=== PATIENT | female | born 1965 | race Caucasian/White ===

== ENCOUNTER → 2021-03-23 | Outpatient (CLI) | payer SELFPAY | LOC: LAB 12:16 | PROVIDERS: ATTEND Family Medicine | DX: E06.3 Autoimmune thyroiditis (principal) | CPT/HCPCS: 36415; 84443 ==

== ENCOUNTER → 2021-04-24 | Outpatient (CLI) | payer OTHER ==
[2021-04-24 07:57] LABS: BASO # 0.1 x10^3/uL (0.0-0.2); BASO % 1 % (0-3); EOS # 0.2 x10^3/uL (0.0-0.7); EOS % 3 % (0-3); HEMATOCRIT 42.6 % (36.0-47.0); HEMOGLOBIN 14.2 g/dL (12.0-15.5); LYMPH # 1.9 x10^3/uL (1.0-4.8); LYMPH % 31 % (24-48); MEAN CORPUSCULAR HEMOGLOBIN 29 pg (25-35); MEAN CORPUSCULAR HGB CONC 33 g/dL (31-37); MEAN CORPUSCULAR VOLUME 86 fL (79-100); MONO # 0.4 x10^3/uL (0.0-1.1); MONO % 6 % (0-9); NEUT # 3.6 x10^3/uL (1.8-7.7); NEUT % 59 % (31-73); PLATELET COUNT 265 x10^3/uL (140-400); RED BLOOD COUNT 4.94 x10^6/uL (3.50-5.40); RED CELL DISTRIBUTION WIDTH 14.8 % (11.5-14.5); WHITE BLOOD COUNT 6.2 x10^3/uL (4.0-11.0)
[2021-04-24 08:27] LABS: ALBUMIN 3.9 g/dL (3.4-5.0); ALBUMIN/GLOBULIN RATIO 1.1 (1.0-1.7); CALCIUM 8.6 mg/dL (8.5-10.1); CHOLESTEROL/HDL RATIO 3.6; CREATININE 0.7 mg/dL (0.6-1.0); GFR 86.2; POTASSIUM 4.2 mmol/L (3.5-5.1); TOTAL BILIRUBIN 0.3 mg/dL (0.2-1.0); TOTAL PROTEIN 7.6 g/dL (6.4-8.2)
[2021-04-24 08:47] LABS: FREE T4 1.36 ng/dL (0.76-1.46); THYROID STIM HORMONE (TSH) 1.733 uIU/mL (0.358-3.74)
[2021-04-24 23:07] LABS: CREAT RD UR 172.2 mg/dL (Not Estab.); MICROALB RD UR 9.3 ug/mL (Not Estab.)
[2021-04-25 01:08] LABS: HEMOGLOBIN A1C 5.9 % (4.8-5.6)
== END ==
LOC: LAB 06:56
PROVIDERS: ATTEND Family Medicine
DX: E03.9 Hypothyroidism, unspecified (principal); E55.9 Vitamin D deficiency, unspecified; E11.9 Type 2 diabetes mellitus without complications
CPT/HCPCS: 36415; 80053; 80061; 82043; 82306; 82570; 83036; 84439; 84443; 85025

== ENCOUNTER → 2021-04-27 | Outpatient (CLI) | payer OTHER ==
--- NOTE | 2021-04-27 11:01 | RAD ---
EXAM: Bilateral digital screening mammogram with tomosynthesis. HISTORY: 55-year-old female presents for screening mammography. TECHNIQUE: Full-field digital craniocaudal and mediolateral oblique 2D and 3D tomosynthesis images of both breasts are obtained for evaluation. Computer aided detection was applied. COMPARISON: 02/15/2020 BREAST PARENCHYMAL DENSITY: Level B - Scattered fibroglandular densities. FINDINGS: There are 2 adjacent sites of possible architectural distortion within the left breast at m id depth at the 9:00 and 10:00 positions centered approximately 9.5 cm and 7.5 cm from the nipple. Th amy are best seen on series 4, images 34 and 44 and series 10, image 51. There are multiple areas of nodularity and asymmetry within both breasts which are not significantly changed when allowing for differences in imaging technique. There are a few benign calcifications. IMPRESSION: BI-RADS Category 0: Incomplete. Additional imaging needed. RECOMMENDATION: Further evaluation with a 3D tomosynthesis true lateral view of the left breast and s pot compression craniocaudal and mediolateral oblique views of the left breast to assess suspected ar chitectural distortion at the 9:00 and 10:00 positions recommended. Sonographic imaging can also be p erformed if deemed indicated based on additional mammographic findings. If your mammogram demonstrates that you have dense breast tissue, which could hide abnormalities, and if you have other risk factors for breast cancer that have been identified, you might benefit from s upplemental screening tests that may be suggested by your ordering physician. Dense breast tissue, i n and of itself, is a relatively common condition. This information is not provided to cause undue c oncern, but rather to raise your awareness and to promote discussion with your physician regarding th e presence of other risk factors, in addition to dense breast tissue. A report of your mammography re sults will be sent to you and your physician. You should contact your physician if you have any ques tions or concerns regarding this report. Mammography is a sensitive method for finding small breast cancers, but it does not detect them all a nd is not a substitute for careful clinical examination. A negative mammogram does not negate a clin ically suspicious finding and should not result in delay in biopsying a clinically suspicious abnorma lity. PQRS compliance statement - Patient information was entered into a reminder system with a target due date for the next mammogram. "Our facility is accredited by the [employer] Mammography [employer]." Electronically signed by: Yoly Sandoval MD (04/27/2021 10:59 AM) [id number]
--- NOTE | 2021-04-27 15:36 | RAD ---
MRI of the lumbar spine without contrast 04/27/2021 CLINICAL HISTORY: Low back pain which radiates down the left leg. TECHNIQUE: Unenhanced T1-weighted and T2-weighted sagittal and axial and inversion recovery sagittal images of the lumbar spine were obtained. FINDINGS: Minimal S-shaped curvature of the thoracolumbar spine is seen. Degenerative signal changes are seen involving all of the disks of the lumbar spine. Degenerative signal changes are seen within the marrow surrounding these discs. The conus medullaris is normal morphology, position, and signal c haracteristics. On the axial images throughout the lumbar disc spaces, the changes of degenerative disc disease are s een. These consist of minimal to mild generalized disc bulges, degenerative changes involving the fac et joints and mild to moderate ligamentum flavum hypertrophy. These findings do not result in signifi cant central spinal canal or neural foraminal stenosis at any level. IMPRESSION: The changes of degenerative disc disease are seen throughout the lumbar spine. These find ings do not result in significant central spinal canal or neural foraminal stenosis. Electronically signed by: Kevin Santos MD (04/27/2021 3:34 PM) [id number]
== END ==
LOC: MAMMO 11:09
PROVIDERS: ATTEND Family Medicine
DX: Z12.31 Encounter for screening mammogram for malignant neoplasm of breast (principal); N64.89 Other specified disorders of breast; M51.36 Other intervertebral disc degeneration, lumbar region
CPT/HCPCS: 72148; 77063; 77067

== ENCOUNTER → 2021-05-02 | Outpatient (CLI) | payer OTHER ==
--- NOTE | 2021-05-02 18:00 | RAD ---
EXAMINATION: US BREAST LT, MG DIGITAL UNILAT DIAGNOSTIC MAMMO WITH LEROY History: Recalled from screening mammogram for architectural distortion in the left breast. Comparison: Screening mammogram 04/27/2021. Technique: Spot compression CC and MLO views and full field MLO view of the left breast were obtained . Ultrasound of the upper outer left breast was performed. Findings: Breast Tissue Density B : There are scattered areas of fibroglandular density. The areas of usability architect ural distortion at 9:00 and 10:00 9.5 and 7.5 cm posterior to the nipple are not conspicuous on spot compression or full-field ML views. ULTRASOUND: There is a hypoechoic antiparallel mass measuring 3 x 3 x 2 mm 11:00, 5 cm from the nippl e. This has slightly irregular margins with suggestion of spiculation on cine clip. There is a second hypoechoic mass measuring 3 x 3 x 2 mm at 9:00, 6 cm from the nipple. This has slightly angular alvaro ins and is wider than tall. These 2 masses may correspond with the mammographic abnormalities althoug h are closer to the nipple than seen on mammogram. There is a third more hypoechoic mass at 11:00 in the retroareolar region measuring 4 x 3 x 2 mm that was incidentally seen. This is slightly more circ umscribed in appearance, possibly clustered microcysts. No axillary lymphadenopathy. IMPRESSION: 3 hypoechoic masses in the left breast, 2 of which may possibly been not definitively correlate with the areas of distortion on mammogram. Recommend ultrasound-guided biopsy of the most suspicious mass at 11:00, 5 cm from the nipple. BI-RADS Category 4: Suspicious. There is also recommendations were discussed with the patient who is in agreement with the plan. Mammography is the most sensitive method for finding small breast cancers, but it does not detect the m all and is not a substitute for careful clinical examination. A negative mammogram does not negate a clinically suspicious finding and should not result in delay in biopsying a clinically suspicious a bnormality. "Our facility is accredited by the [employer] Mammography [employer]." The images were reviewed with computer aided detection. Electronically signed by: Janine Sanford MD (05/02/2021 5:58 PM) [id number]
== END ==
LOC: MAMMO 08:21
PROVIDERS: ATTEND Family Medicine
DX: N63.20 Unspecified lump in the left breast, unspecified quadrant (principal)
CPT/HCPCS: 76641; 77065; G0279; 77061

== ENCOUNTER → 2021-05-08 | Outpatient (CLI) | payer OTHER ==
[~2021-05-08] MED LIST: ACET500T68 PO; BUPIVACAINE MPF 0.25% 10 ML VIAL. ONE; BUSP5TAB PO; IOHEXOL 180 MG/ML 10 ML VIAL. ONE; LEVO100T5 PO; NAPR220C4 PO; OXYB5TAB10 PO; methylPREDNISolone ACETATE 80 MG/ML VIAL. ONE
--- NOTE | 2021-05-08 12:02 | PDOC4 ---
PROCEDURE Procedure Patient was consented for left-sided L4-5 and L5-S1 facet joint injections with fluoroscopic guidance. Risks were discussed including but not limited to: Bleeding, infection, possibility of epidural hematoma and subsequent neurological compromise, dural puncture, headaches, spinal cord and/or nerve damage, side effects of steroid medication, and poor results regarding pain control. Patient understands and wished to proceed. Under sterile prep and drape using C-arm fluoroscopic guidance AP and lateral and oblique views, left L4-5 and L5-S1 facet joint injections were performed, m edications injected: 80 mg Depo-Medrol +2 cc 0.25% bupivacaine +1 cc contrast. Condition at discharge stable patient tolerated the procedure well and no complications. MACO MOFFETT MD May 08, 2021 12:02
--- NOTE | 2021-05-08 12:02 | PDOC1 ---
INITIAL PAIN CONSULT DATE OF SERVICE: DOS: DATE: 05/08/21 TIME: 11:53 CHIEF COMPLAINT: Chief Complaint: Low back and left hip pain HISTORY OF PRESENT ILLNESS: 55-year-old female presents with history of pain low back and into the left hip and posterior gluteus occasionally worse for about 3 years. Patient reports is gradually increasing as not the result of any specific injury or accident that she is aware of is a constant and sharp at times now she has been treatment at outside facility about 2 years ago with radiofrequency ablation on the right side only which is about 95% effective and is still doing well the left side is her main complaint in the low back itself without radiation to the lower extremities but into the left posterior hip at times patient report is worse with walking standing changing positions sitting for prolonged periods wakes her from sleep least 2-3 times a night does not affect her bowel bladder control or ability to walk but is uncomfortable. Patient reports she has not had any recent therapies or chiropractic treatments as had these in the past and is doing some stretching daily also taking Tylenol and Aleve as well as diclofenac cream which does help mildly. Patient reports the pain is constant sharp at times in the low back throbbing aching especially with prolonged sitting and standing. Patient rates her pain is anywhere from a 7-10 with family home responsibilities 5-6 with recreation 5-8 with social activity 5-7 with occupation sexual behavior self-care and 5-8 with life support activities. Patient have MRI scan lumbar spine showing no significant central spinal canal stenosis but some changes of degenerative disc disease throughout the lumbar spine. Patient reports no loss of motor function no bowel or bladder incontinence. PAST MEDICAL HISTORY: PMH: Arthritis PREVIOUS SURGERIES: Past Surgical Hx: Cervical spinal fusion, total abdominal hysterectomy, right inguinal hernia repair CURRENT MEDICATIONS: Current Meds: Active Scripts Medications Dose Route/Sig Max Daily Dose Days Date Category Aleve (Naproxen Sodium) 220 Mg Capsule 220 Mg PO BID 05/08/21 Reported Acetaminophen 500 Mg Tablet 1 Tab PO PRN Q6HRS PRN 15 05/08/21 Reported Buspirone Hcl 5 Mg Tablet Unknown Dose PO DAILY 05/08/21 Reported Oxybutynin Chloride 5 Mg Tablet 1 Tab PO DAILY 05/08/21 Reported Levothyroxine Sodium 100 Mcg Tablet 1 Tab PO DAILY 05/08/21 Reported FAMILY HISTORY: Family Hx: No major medical problems or conditions that she is aware of. 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 PHYSICAL EXAM: VS: Blood pressure is 133/99 pulse 1 1 respirations 16 temperature 98.3 F height is 5 foot 9 inches weight is 231 pounds PE: PHYSICAL EXAMINATION: GENERAL: The patient is awake, alert, oriented, appropriate, very pleasant in demeanor. HEENT: Shows normocephalic, atraumatic. Extraocular movements are intact and symmetrical. Oral cavity: Mucous membranes moist and pink. Dentition intact. NECK: Shows anterior throat supple without palpable lymphadenopathy noted. Swallow reflex symmetrical. CHEST: Shows normal on inspection. Breath sounds are clear bilaterally, no rales rhonchi wheezes auscultated. HEART: Shows S1, S2 clear. No murmurs auscultated. ABDOMEN: Soft, nontender, nondistended, obese. No palpable organomegaly is noted. No rebound or guarding demonstrated. BACK: Shows spine grossly in the midline. Normal-appearing cervical lordotic curvature. There is increased thoracic kyphosis, some minor flattening of the lumbar lordotic curvature. Lumbar paraspinous muscles show symmetrical on insp ection, on palpation shows some moderate tenderness diffusely throughout the upper, middle and lower distribution of the paraspinous muscles bilaterally and also into the lower thoracic paraspinous musculature, firm, but without specific trigger points, without radiation of pain. The patient has good rotational motion of the lumbar spine, both laterally as well as extension and flexion with significant tenderness with rotation to the left greater than 10 degrees as well as with extension of the lumbar spine and axial loading of the low back significant pain on the left side with some radiation to the posterior gluteus. No tenderness over the spinous processes, sacrum or sacroiliac regions. EXTREMITIES: Lower extremities show deep tendon reflexes 2+ in the patellar and tendo calcaneus tendons. Motor exam is 5 on a scale of 5 with right dorsiflexion, extension, quadriceps and hamstring flexion and 5/5 on the left. Peripheral pulses are 1+ posterior tibial. No peripheral edema is noted bilaterally. Lower extremities are warm and dry to touch, equal in color and appearance. Straight leg raise noted to be negative bilaterally. SKIN: Shows warm and dry, good turgor. No edema. No sores, rashes or bruising throughout. IMPRESSION: Impression: 55-year-old female with approximate 3-year history of pain left-sided low back, consistent with facetogenic pain. History of radiofrequency ablation on the right with very good results. MRI scan as noted Arthritis Plan: Options discussed with the patient including conservative medical management continued physical therapies and interventional techniques. As patient did very well with previous interventional techniques would like to pursue these again. We discussed a lumbar facet joint injection today using descriptions as well as anatomical models to describe the procedure. Patient understands and would like to proceed. As she did very well with radiofrequency ablation on the right side we will preauthorize for radiofrequency on the left side and have diagnostic blocks done today on the left. Patient will return to the clinic in approximately 1 week we will plan on radiofrequency ablation on the left side L4-5 and L5-S1 levels at that time. Under sterile prep and drape using C-arm fluoroscopic guidance AP and lateral and oblique views, left L4-5 and L5-S1 facet joint injections were performed, medications injected: 80 mg Depo-Medrol +2 cc 0.25% bupivacaine +1 cc contrast. Condition at discharge stable patient tolerated the procedure well and no complications. MACO MOFFETT MD May 08, 2021 12:02
== END | disposition home or self-care (01) ==
LOC: PNCL 07:49
PROVIDERS: ATTEND Anesthesiology
DX: M54.5 Low back pain (principal); M51.36 Other intervertebral disc degeneration, lumbar region; M25.552 Pain in left hip; M19.90 Unspecified osteoarthritis, unspecified site; Z79.899 Other long term (current) drug therapy; Z98.890 Other specified postprocedural states
CPT/HCPCS: 64493; 64494; J1040; J3490; Q9965

== ENCOUNTER → 2021-05-10 | Outpatient (CLI) | payer OTHER ==
[~2021-05-10] MED LIST changes: -BUPIVACAINE MPF 0.25% 10 ML VIAL. ONE; -IOHEXOL 180 MG/ML 10 ML VIAL. ONE; -methylPREDNISolone ACETATE 80 MG/ML VIAL. ONE
--- NOTE | 2021-05-10 14:38 | RAD ---
EXAM: 1. ULTRASOUND-GUIDED CORE BIOPSY LEFT BREAST WITH CLIP PLACEMENT. 2. POSTCLIP DIAGNOSTIC LEFT MAMMOGRAPHY. HISTORY: Left breast mass. Ultrasound-guided biopsy is requested. FINDINGS: The procedure along with its risks and benefits were explained to the patient. She agreed to proceed. A timeout procedure was performed. The patient's prior mammography and sonography were reviewed. Sonographic images of the left 9:00 pos ition were also performed. These reveal an irregular hypoechoic solid mass at the 9:00 position 10 cm from the nipple measuring 7 x 6 x 6 mm. This is antiparallel and indeterminate. Prior imaging of the left axilla reveals no suspicious lymph nodes. The regions of suggested architectural distortion on prior mammography do not clearly persist and do not have clear ultrasound correlates. The lesion of prior sonographic concern appear to represent sma ll complicated cysts at the 11:00 position 5 cm from the nipple, and subareolar position. It was decided to biopsy the lesion at the 9:00 position 10 cm from the nipple. The overlying skin wa s sterilely prepped and infiltrated with 1% lidocaine for local anesthesia. Under ultrasound guidance , 3 core needle specimens of the target lesion were obtained using a 14-gauge biopsy device. These we re submitted in formalin. A postbiopsy clip was placed under ultrasound guidance. Pressure was held t o hemostasis. There were no immediate complications. Full-field digital mammographic views of the left breast were obtained in CC and MLO projections and interpreted on a dedicated workstation. They demonstrate the clip in correspondence with the target l esion. IMPRESSION: 1. Successful ultrasound-guided left breast biopsy with clip placement of a mass at the left 9:00 pos ition 10 cm from the nipple. 2. The postbiopsy clip corresponds with the target lesion. 3. The suggested sonographic lesion at the 11:00 position 5 cm from the nipple most likely reflects a benign complicated cyst. The suggested regions of architectural distortion on prior mammographic scr eening have no clear sonographic correlate. These findings were discussed with the patient. If the co mpleted biopsy is positive, breast MRI with and without contrast could screen for additional sites of disease and further exclude significant lesions at regions of sonographic and mammographic concern. If the biopsy is negative, six-month follow-up left diagnostic mammography and sonography is recommen ded. Electronically signed by: Lucius Ambrose MD (05/10/2021 2:35 PM) [id number]
--- NOTE | 2021-05-16 09:09 | PATHOLOGY ---
[facility] Accession Number: [id number] . 01 Material submitted: . breast - LEFT BREAST TISSUE 900 10 CM FN. Modifiers: left, 900, 10 CM . 01 Clinical history: . LEFT BREAST BIOPSY . 02 Diagnosis: Breast tissue, left breast mass 9:00, 10 cm from nipple needle biopsies: - INVASIVE DUCTAL CARCINOMA, HISTOLOGIC GRADE 2. SEE COMMENT. ([facility]; 05/15/2021) MBR 05/16/2021 0816 Local . 02 Comment: Sections of the left breast mass 9:00 needle biopsy reveal an invasive mammary carcinoma. The tumor cells have a small solid nested and focal cord-like arrangement and show no evidence of tubule formation. The tumor is associated with a reactive stroma and focally infiltrates fatty tissue. The tumor cells have mild to moderate amounts of pale eosinophilic cytoplasm, and possess enlarged, mild to focally moderately pleomorphic nuclei. A few mitotic figures are noted. There are no tumor-associated calcifications. There is no lymphovascular tumor invasion. Invasive carcinoma measures up to 6 mm in greatest dimension on the glass slide. A limited panel of immunoperoxidase stains is obtained on A1 and yields the following results: . AE1/AE3: Tumor cells positive E-cadherin: Tumor cells positive . The morphologic and immunophenotypic findings are supportive of the diagnosis of an invasive ductal carcinoma, histologic grade 2, with focal lobular features. The case is also examined by Dr. Herrera, who concurs with the diagnosis. Breast prognostic studies will be obtained on A1, the results of which will be reported separately. ([facility]; 05/15/2021) . 02 Electronically signed: . Juan Jose Gresham MD, Pathologist NPI- [id number] . 01 Gross description: . The specimen is received in formalin, labeled "Cheli Blackmon, left breast 9:00 10 cm from nipple" received as 2 soft virgen-yellow tissue cores measuring up to 1.4 cm x 0.2 cm. The specimen is entirely submitted A1. The specimen is removed from the patient at 1333 hours and placed in formalin at 1334 hours on Saturday, May 10, 2021. The specimen is removed from formalin at 11:30pm. The specimen is in formalin for greater than 6 hours and less than 72 hours. ([facility]; 05/10/2021) KAMLA/KAMLA 05/11/2021 0755 Local . 02 Pathologist provided ICD-10: C50.912 . 02 CPT . 906873, G13514, L01876 Specimen Comment: A courtesy copy of this report has been sent to [phone], [phone] Specimen Comment: [id number] Specimen Comment: Report sent to / DR JONES Performed at: 01 [facility] [address], [place] [id number] MD Higinio Stuart MD Phone: [phone] Performed at: 02 [facility] [address], [place] [id number] MD Juan Jose Gresham MD Phone: [phone]
== END | disposition home or self-care (01) ==
LOC: US 13:28
PROVIDERS: ATTEND Family Medicine
DX: N63.24 Unspecified lump in the left breast, lower inner quadrant (principal); R92.8 Other abnormal and inconclusive findings on diagnostic imaging of breast; Z79.899 Other long term (current) drug therapy
CPT/HCPCS: 19083; 77065; A4648; 88305; 88341; 88342

== ENCOUNTER → 2021-05-23 | Outpatient (CLI) | payer OTHER ==
--- NOTE | 2021-05-23 14:57 | PDOC ---
Progress Note - Pain Clinic Date of Service: DOS: DATE: 05/23/21 TIME: 14:52 Diagnosis: Dx: Lumbar degenerative disease lumbar and lumbosacral spondylosis History or Present Illness: HPI: 56-year-old female returns for follow-up status post lumbar facet medial branch injections May 08, 2021. Patient reports that these helped by about 75% initially now about 50% improvement for about 1 to 2 weeks patient reports still significant pain in the low back on the left side only. Patient had had radiofrequency ablation on the right side about 2 years ago and the left side now is becoming more significantly tender again better with the facet injections of 2 weeks ago. Patient describes the pain still in the low back on the left side only sharp radiating across the back at times mostly just in the low back not radiating to the lower extremities can be constant with standing walking and sitting for prolonged periods. Patient reports her pain is anywhere from 6-10 at its worst the past week 5 on average to its least and is a 5 today. Patient reports no new motor or sensory deficits no new bladder or bowel incontinence or other complaints. Physical Exam: VS: Blood pressure is 134/85 pulse 81 respirations 16 temperature 98.3 F weight is 229 pounds PE: PHYSICAL EXAMINATION: GENERAL: The patient is awake, alert, oriented, appropriate, very pleasant demeanor HEENT: Shows normocephalic, atraumatic. Extraocular movements are intact and symmetrical. NECK: Shows anterior throat supple without palpable lymphadenopathy noted. Swallow reflex symmetrical. BACK: Shows spine grossly in the midline. Normal-appearing cervical lordotic curvature. There is slightly increased thoracic kyphosis, some minor flattening of the lumbar lordotic curvature. Lumbar paraspinous muscles show symmetrical on inspection, on palpation shows some moderate tenderness diffusely throughout the upper, middle and lower distribution of the paraspinous muscles bilaterally and also into the lower thoracic paraspinous musculature, firm and tender, but without specific trigger points, without radiation of pain. The patient has good rotational motion of the lumbar spine, with moderate tenderness with extension right and left lateral rotation greater than 10 degrees and significant tenderness with extension lumbar spine only in the left side of the low back but this is relieved with forward flexion 45 degrees. No tenderness over the spinous processes, sacrum or sacroiliac regions. EXTREMITIES: Lower extremities show deep tendon reflexes 2+ in the patellar and tendo calcaneus tendons. Motor exam is 5 on a scale of 5 with right dorsiflexion, extension, quadriceps and hamstring flexion and 5/5 on the left. Peripheral pulses are 1+ posterior tibial. No peripheral edema is noted bilaterally. Lower extremities are warm and dry to touch, equal in color and appearance. SKIN: Shows warm and dry, good turgor. No edema. No sores, rashes or bruising throughout. Procedure: Procedure: Options discussed with patient. Patient chart was reviewed as her current medication regimen updated current review of systems updated today as well. We will proceed with radiofrequency ablation of the left L4-5 and L5-S1 medial branch with fluoroscopic guidance. Risks were discussed including but not limited to: Bleeding, infection, possibility of epidural hematoma and subsequent neurological compromise, dural puncture, headaches, spinal cord and/or nerve damage, potential thermal damage to the surrounding tissues as well as motor nerves with permanent ischemic damage, side effects of steroid medication, and poor results regarding pain control. Patient understands and wished to proceed. Patient will return to the clinic in approximately 3 weeks for follow-up, was counseled as to return appointment activity level and side effects to be aware of. Medication Injected: Med Injected: Under sterile prep and drape patient in prone position using C-arm fluoroscopic guidance patient's lumbar spine was visualized in both AP oblique and lateral views using 1% lidocaine to topically anesthetize the areas overlying the L3-4, L4-5 and L5-S1 facet joints at the point of the medial branches. Using a 22- gauge insulated radiofrequency needle with curved tips and stylette, the needles were advanced to contact the region of the facet with the medial branch targets. This was repeated at the L3-4 L4-5 and L5-S1 levels. Stylette was removed and using radiofrequency probe inserted into each needle individually at each level and then motor tested with no motor stimulation of the lower extremity. Patient did have some multifidus musculature contraction in the lumbar spine only but without radiation. At this time 1 cc of 2% lidocaine was then injected in each needle after motor testing but prior to radiofrequency ablation. Needle position was confirmed continuously throughout the radiofrequency ablation with both AP oblique and lateral views at each level. At this time radiofrequency ablation was carried out each level for 60 seconds at 80 C x 2 at each level with the tip of the needle turned 90 degrees after the first 60 seconds and then subsequent 60 seconds of radiofrequency ablation. Once radiofrequency ablation was completed solution containing 0.25% bupivacaine 1 cc and 20 mg Depo-Medrol was injected at each level. Needle was then withdrawn. Patient had no paresthesias throughout the procedure no radiation of pain into the lower extremities no lower extremity motor response with motor testing bilaterally. Please see radiofrequency flowsheet for levels, temperatures, impedance, etc. Condition at Discharge: Condition at Discharge: Condition at discharge stable, patient alert the procedure well and had no complications. MACO MOFFETT MD May 23, 2021 14:57
== END | disposition home or self-care (01) ==
LOC: PNCL 12:58
PROVIDERS: ATTEND Anesthesiology
DX: M51.36 Other intervertebral disc degeneration, lumbar region (principal); M47.817 Spondylosis without myelopathy or radiculopathy, lumbosacral region; Z79.899 Other long term (current) drug therapy
CPT/HCPCS: 64635; 64636

== ENCOUNTER 2021-06-12 07:54 | Day surgery (SDC) | payer OTHER ==
[~2021-06-12] VITALS: Ht 175.3 cm; Wt 105.4 kg
[~2021-06-12 07:54] MED LIST changes: +HYDROmorphone 2 MG/ML VIAL IVP PRN; +IV RINGERS,LACTATED 1000ML 1,000 ML IV SCH; +LIRA0.6P2 SQ; +MORPHINE SULFATE 2 MG/ML INJ. IVP PRN; +PROCHLORPERAZINE 10 MG/2 ML VIAL. IVP PRN; +fentaNYL PF VIAL 100 MCG/2 ML VIAL IVP PRN
[2021-06-12] MEDS ORDERED: SCOPOLAMINE 1.5MG PATCH. TD SCH (09:00)
[2021-06-12] MEDS ORDERED: ONDANSETRON PF 4 MG/2 ML VIAL. ONE (10:37)
[2021-06-12] MEDS ORDERED: DEXAMETHASONE SOD PHOS 4 MG/ML VIAL ONE (10:37)
[2021-06-12] MEDS ORDERED: LIDOCAINE 1% PF 5 ML VIAL. ONE (10:37)
[2021-06-12] MEDS ORDERED: PROPOFOL 10 MG/ML (20ML) VIAL. IV ONE ×2 (10:37→13:59)
[2021-06-12] MEDS ORDERED: MIDAZOLAM HCL/PF 2 MG/2 ML VIAL. ONE (12:13)
[2021-06-12] MEDS ORDERED: fentaNYL PF VIAL 100 MCG/2 ML VIAL ONE ×2 (12:13→13:36)
[2021-06-12] MEDS ORDERED: ISOSULFAN BLUE 1% 50 MG/5 ML VIAL. SQ ONE (12:22)
[2021-06-12] MEDS ORDERED: BUPIVACAINE-EPI 0.5% 30 ML VIAL KIT. ONE ×2 (12:23)
--- NOTE | 2021-06-12 13:58 | RAD ---
EXAM: Sonographic guided left breast needle-wire localization; left breast post localization mammogra m; left breast lymphoscintigraphy; left breast specimen radiograph. HISTORY: 56-year-old female with recent diagnosis of left breast cancer presents for needle-wire loca lization and lymphoscintigraphy prior to lumpectomy and sentinel node biopsy. TECHNIQUE: The risks of the procedure discussed with the patient and written and verbal consent was o btained. A timeout was performed. Sonographic imaging of the left breast was performed and the lesion of concern at the 3:00 position containing a biopsy clip is identified. The skin overlying this loca tion was sterilely prepped, draped and infiltrated with 1 percent lidocaine. A needle-wire system was advanced into the lesion and the wire was deployed with sonographic guidance. The wire was secured a t the skin surface. Subsequently, the skin of the anterior breast was sterilely prepped and 1.0 mCi technetium Tilmanocep t was injected intradermally in a periareolar location for lymphoscintigraphy. No scintigraphic image was obtained. The post localization mammogram demonstrates the localization wire hook abutting the biopsy clip and through the lesion of concern. The patient was transferred to the operative suite in stable condition without immediate complication. A specimen radiograph demonstrates inclusion of the wire and biopsy clip and lesion of concern. IMPRESSION: 1. Sonographic guided left breast needle-wire localization for lumpectomy and successful inclusion of the biopsy clip and lesion of concern within the surgical specimen. 2. Left breast lymphoscintigraphy. Electronically signed by: Yoly Sandoval MD (06/12/2021 1:56 PM) [id number]
[2021-06-12] MEDS ORDERED: SEVOFLURANE 61 TO 120 MINUTES. IH ONE (14:15)
--- NOTE | 2021-06-12 14:39 | PDOC4 ---
Operative Note Operative Note Operative Note: Preoperative Diagnosis: Left breast invasive carcinoma Postoperative Diagnosis: Same Procedure: Left lumpectomy with needle localization, left axillary sentinel l ymph node biopsy Surgeon: Rosalio Overhead Crane Inspector: Nilson WOODRUFF Anesthesia: General EBL: 25 mL Specimen: Left lumpectomy, short stitch anterior, long stitch lateral; additional margins, superior, inferior, anterior, medial; left axillary sentinel lymph node Drains: None Complications: None Indication: The patient is a 56-year-old female who was recently diagnosed with invasive ductal carcinoma of left breast. She is interested in breast conservation and appears to be an appropriate candidate. We plan for left lumpectomy with axillary sentinel lymph node biopsy. The risks of surgery were discussed which include bleeding, infection, pain, anesthetic risk, scar tissue, wound healing problems, seroma formation, potential need for additional surgery procedure. She understands and would like to proceed. Description: The patient was taken initially to radiology where she underwent injection of technetium sulfur colloid and wire localization. She was then brought to the operating room and general anesthesia was performed. She was positioned supine on the operating table with the left arm outstretched on an armboard. Five mL of Lymphazurin were injected deep to the nipple areolar complex. Several minutes were allowed to elapse. An incision was made in the left axilla with a scalpel. Cautery dissection was carried down into the axillary tissues. There was one area of marked focal increased nuclear uptake. This corresponded to a lymph node that showed no blue staining. This was harvested from surrounding tissues and sent to pathology for evaluation. Further inspection showed no palpable adenopathy or marked increased of nuclear uptake in any other lymph nodes. There is no other additional blue staining noted. We then directed our attention to the lumpectomy. The wire was seen exiting in the lateral position. An incision was made extending from exit site of the wire medially. Cautery dissection was carried down into the breast parenchyma. The wire was identified and delivered into the incision. With primarily cautery a generous lumpectomy was performed freeing the involved breast tissue from the surrounding parenchyma. The wire was followed to its tip and the lumpectomy specimen was fully excised. A long stitch marked the lateral aspect of the specimen and a short stitch marked the anterior aspect. The specimen was sent to radiology where radiographs confirmed the presence of the clip and wire present. The specimen was then sent to pathology. We elected to remove additional margins located superiorly, inferiorly, anteriorly and medially. These additional shave margins were sent to pathology. Hemostasis was achieved with cautery. The subcutaneous tissue of both incision sites was closed with 3-0 Vicryl. Skin was closed with 4-0 Monocryl and sterile dressings were applied. The patient tolerated the procedure well and was sent to the recovery room in stable condition. At the end of the case all counts were correct. MIGUEL WESLEY MD Jun 12, 2021 14:39
[2021-06-12] MEDS ORDERED: OXYC1TAB22 PO (14:46)
--- NOTE | 2021-06-12 14:50 | DISCH ---
DISCHARGE INSTRUCTIONS Condition on Discharge Condition on Discharge: Stable Activity After Discharge Activity Instructions for Disc: Activity as tolerated Diet after Discharge Diet after Discharge: Regular Wound Incision Care Wound/Incision Care: Other, see below (keep dressing clean and dry X 72 hours) Follow-Up Follow up with: Dr Wesley in 1 week in office, call for appointment [phone] MGIUEL WESLEY MD Jun 12, 2021 14:50
[2021-06-12] MEDS ORDERED: oxyCODONE/APAP 5/325 1 TAB TABLET ONE (15:11)
[2021-06-12] MEDS ORDERED: oxyCODONE/APAP 5/325 1 TAB TABLET PO ONE (15:15)
[2021-06-12 15:41] VITALS: BP 149/83
== END 2021-06-12 16:30 | disposition home or self-care (01) ==
LOC: SURG 07:54
PROVIDERS: ATTEND Surgery
DX: C50.912 Malignant neoplasm of unspecified site of left female breast (principal); R92.8 Other abnormal and inconclusive findings on diagnostic imaging of breast; G47.30 Sleep apnea, unspecified; M19.90 Unspecified osteoarthritis, unspecified site; E11.9 Type 2 diabetes mellitus without complications; E03.9 Hypothyroidism, unspecified; F41.9 Anxiety disorder, unspecified; Z90.710 Acquired absence of both cervix and uterus; Z98.890 Other specified postprocedural states; Z79.899 Other long term (current) drug therapy; Z72.89 Other problems related to lifestyle; Z88.8 Allergy status to other drugs, medicaments and biological substances
CPT/HCPCS: 19285; 19301; 38500; 38792; 76098; 77065; 96374; A4209; A4213; A4556; A4930; A6254; A6255; A6258; A6402; A9520; C1819; J0690; J1100; J2250; J2405; J2704; J3010; J3490; Q9968; 88304; 88307; 88331; 88342

== ENCOUNTER → 2021-07-05 | Outpatient (CLI) | payer OTHER ==
[2021-06-12 15:41] VITALS: BP 149/83
[~2021-07-05] MED LIST changes: -HYDROmorphone 2 MG/ML VIAL IVP PRN; -IV RINGERS,LACTATED 1000ML 1,000 ML IV SCH; -MORPHINE SULFATE 2 MG/ML INJ. IVP PRN; +OXYC1TAB22 PO; -PROCHLORPERAZINE 10 MG/2 ML VIAL. IVP PRN; -fentaNYL PF VIAL 100 MCG/2 ML VIAL IVP PRN
--- NOTE | 2021-07-05 13:14 | RAD ---
EXAM: Chest, 2 views. HISTORY: Breast cancer. COMPARISON: None. FINDINGS: 2 views of the chest are obtained. There is no infiltrate, pleural effusion or pneumothorax . There is right middle lobe linear atelectasis or scarring. There is cervical spinal fusion instrume ntation. The heart is normal in size. There is thoracic kyphosis. IMPRESSION: No acute pulmonary finding. Electronically signed by: Yoly Sandoval MD (07/05/2021 1:12 PM) [id number]
== END ==
LOC: RAD 11:36
PROVIDERS: ATTEND Radiology Radiation Oncology
DX: C50.112 Malignant neoplasm of central portion of left female breast (principal); M40.294 Other kyphosis, thoracic region
CPT/HCPCS: 71046

== ENCOUNTER → 2021-07-07 | Outpatient (CLI) | payer OTHER ==
[2021-06-12 15:41] VITALS: BP 149/83
--- NOTE | 2021-07-07 07:58 | PDOC ---
Progress Note - Pain Clinic Date of Service: DOS: DATE: 07/07/21 TIME: 07:56 Diagnosis: Dx: Lumbar degenerative disc disease with lumbar and lumbosacral spondylosis History or Present Illness: HPI: 56-year-old female returns for follow-up status post radiofrequency ablation left L4-5 L5-S1 medial branches returns today with 100% improvement reported in the low back on the left side patient reports she is increasing her distance walking doing household activities work activities travel with greater ease and comfort sleeping better does not awaken from sleep at night patient reports that she has been traveling walking standing bending stooping doing everything she wants without any pain at all. Patient rates her pain is a 0 at all times average worst and least 0 today patient reports that she is very pleased with the progress she does have a new diagnosis of breast cancer which is starting radiation next month but otherwise doing fairly well. Patient reports no new motor or sensory deficits no bladder incontinence or other concerns. Physical Exam: VS: Blood pressure is 144/85 pulse 66 respirations 18 temperature 98.2 F height 5 foot 9 inches weight 83 pounds PE: PHYSICAL EXAMINATION: GENERAL: The patient is awake, alert, oriented, appropriate, very pleasant in demeanor HEENT: Shows normocephalic, atraumatic. Extraocular movements are intact and symmetrical. Oral cavity: Mucous membranes moist and pink. Dentition is intact. NECK: Shows anterior throat supple without palpable lymphadenopathy noted. Swallow reflex symmetrical. CHEST: Shows normal on inspection. Breath sounds are clear bilaterally. HEART: Shows S1, S2 clear. No murmurs auscultated. ABDOMEN: Soft, nontender, nondistended. No palpable organomegaly is noted. BACK: Shows spine grossly in the midline. Normal-appearing cervical lordotic curvature. There is slightly increased thoracic kyphosis, some minor flattening of the lumbar lordotic curvature. Lumbar paraspinous muscles show symmetrical on inspection, on palpation shows some moderate tenderness diffusely throughout the upper, middle and lower distribution of the paraspinous muscles, but without specific trigger points, without radiation of pain. The patient has good rotational motion of the lumbar spine, both laterally as well as extension and flexion without significant difficulty. No tenderness over the spinous processes, sacrum or sacroiliac regions. EXTREMITIES: Lower extremities show deep tendon reflexes 2+ in the patellar and tendo calcaneus tendons. Motor exam is 5 on a scale of 5 with right dorsiflexion, extension, quadriceps and hamstring flexion and 5/5 on the left. Peripheral pulses are 1 posterior tibial. No peripheral edema is noted bilaterally. Lower extremities are warm and dry. SKIN: Shows warm and dry, good turgor. No edema. No sores, rashes or bruising throughout. Procedure: Procedure: Options were discussed with the patient. Patient chart reviews her current medication regimen updated current review of systems updated today as well. We will hold any further injections at this time as patient doing quite a bit better patient was encouraged to increase activity as tolerated maintain stretching and strengthening exercises as well. At this time patient follow-up on as-needed basis. Medication Injected: Med Injected: None Condition at Discharge: Condition at Discharge: Condition at discharge is stable. MACO MOFFETT MD Jul 07, 2021 07:58
== END | disposition home or self-care (01) ==
LOC: PNCL 07:25
PROVIDERS: ATTEND Anesthesiology
DX: M51.36 Other intervertebral disc degeneration, lumbar region (principal); M47.817 Spondylosis without myelopathy or radiculopathy, lumbosacral region; G47.30 Sleep apnea, unspecified; M19.90 Unspecified osteoarthritis, unspecified site; E11.9 Type 2 diabetes mellitus without complications; E03.9 Hypothyroidism, unspecified; F41.9 Anxiety disorder, unspecified; Z90.710 Acquired absence of both cervix and uterus; Z98.890 Other specified postprocedural states; Z79.899 Other long term (current) drug therapy; Z72.89 Other problems related to lifestyle; Z88.8 Allergy status to other drugs, medicaments and biological substances
CPT/HCPCS: 99212; G0463

== ENCOUNTER 2021-08-21 09:26 | Emergency (ER) | payer OTHER ==
[~2021-08-21] VITALS: Ht 175.3 cm; Wt 107.0 kg
[2021-08-21 09:57] LABS: BASO # 0.1 x10^3/uL (0.0-0.2); BASO % 1 % (0-3); EOS # 0.1 x10^3/uL (0.0-0.7); EOS % 2 % (0-3); HEMATOCRIT 42.7 % (36.0-47.0); HEMOGLOBIN 14.5 g/dL (12.0-15.5); LYMPH # 1.1 x10^3/uL (1.0-4.8); LYMPH % 21 % (24-48); MEAN CORPUSCULAR HEMOGLOBIN 30 pg (25-35); MEAN CORPUSCULAR HGB CONC 34 g/dL (31-37); MEAN CORPUSCULAR VOLUME 87 fL (79-100); MONO # 0.4 x10^3/uL (0.0-1.1); MONO % 9 % (0-9); NEUT # 3.4 x10^3/uL (1.8-7.7); NEUT % 67 % (31-73); PLATELET COUNT 234 x10^3/uL (140-400); RED BLOOD COUNT 4.88 x10^6/uL (3.50-5.40); RED CELL DISTRIBUTION WIDTH 14.8 % (11.5-14.5)
[2021-08-21] MEDS ORDERED: ONDANSETRON PF 4 MG/2 ML VIAL. IVP ONE (10:00)
[2021-08-21] MEDS ORDERED: KETOROLAC 30 MG/ML VIAL. IVP ONE (10:00)
--- NOTE | 2021-08-21 10:01 | PHYS DOC ---
General Adult HPI: HPI: Patient is a 56-year-old female presents emergency department chief complaint of sudden onset right-sided chest pain that radiated through to her back and across her shoulder blades just prior to arrival, complained of nausea, denied vomiting or diarrhea. Denies shortness of breath. Reports pain 7 at onset describing as a piercing pain, has since resolved to a 3 out of 10 and now describes as a dull pain since arrival to the ER. 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 Patient denies increased pain with movement or deep inspiration/expiration. Patient denies a cardiac history, denies smoking history, denies drinking alcohol or illicit drug use. Reports a GERD history however has not had a GERD flareup since her Ena surgery 5 years ago. Reports this does not feel like a GERD flareup. Also reports a "slight headache "across the forehead since arrival to ER rating a 2 out of 10 pain denies taking any csct-imh-ryenzot or prescription medications for pain. Reports a past medical history of left breast cancer, finished her last radiation treatment this past Saturday. Denies other physical complaints or concerns. Patient reports completing the COVID-19 virus vaccination series. Review of Systems: Review of Systems: 14 body systems of review of systems have been reviewed. See HPI for pertinent positives and negative responses, otherwise all other systems are negative, nonpertinent or noncontributory. Constitutional: Negative except as outlined in HPI above. Skin: Negative except as outlined in HPI above. Eyes: Negative except as outlined in HPI above. HENT: Negative except as outlined in HPI above. Respiratory: Negative except as outlined in HPI above. Cardiovascular: Negative except as outlined in HPI above. GI: Negative except as outlined in HPI above. : Negative except as outlined in HPI above. Musculoskeletal: Negative except as outlined in HPI above. Integument: Negative except as outlined in HPI above. Neurologic: Negative except as outlined in HPI above. Endocrine: Negative except as outlined in HPI above. Lymphatic: Negative except as outlined in HPI above. Psychiatric: Negative except as outlined in HPI above. Heart Score: C/O Chest Pain: Yes HEART Score for Chest Pain: HEART Score for Chest Pain Response (Comments) Value History Slighlty/Non-Suspicious 0 ECG Nonspecific Repolarizatio 1 Age >45 - < 65 1 Risk Factors No Risk Factors 0 Troponin < Normal Limit 0 Total 2 Risk Factors: Risk Factors: DM, Current or recent (<one month) smoker, HTN, HLP, family history of CAD, obesity. Risk Scores: Score 0 - 3: 2.5% MACE over next 6 weeks - Discharge Home Score 4 - 6: 20.3% MACE over next 6 weeks - Admit for Clinical Observation Score 7 - 10: 72.7% MACE over next 6 weeks - Early Invasive Strategies Current Medications: Current Medications Medications (Trade) Dose Ordered Sig/Augustine Start Time Stop Time Status Last Admin Dose Admin Aspirin (Aspirin Chewable) 324 mg 1X ONCE 08/21/21 09:45 08/21/21 09:46 UNV Allergies: Allergies: Allergies Coded Allergies Type Severity Reaction Last Updated Verified hydrocodone Allergy Severe Swelling 06/09/21 Yes prednisone Allergy Severe Swelling 06/09/21 Yes Physical Exam: PE: Constitutional: Well developed, well nourished, no acute distress, non-toxic appearance. 56-year-old female in no apparent distress. HENT: Normocephalic, atraumatic. Eyes: Conjunctiva normal, no discharge. Neck: Normal range of motion, no stridor. Cardiovascular: No cyanosis appreciated, distal cap refill less than 2 seconds. Heart sounds S1-S2 with auscultation, regular rate and rhythm. Lungs & Thorax: Patient is in no respiratory distress, no audible adventitious lung sounds appreciated. Normal work of breathing, lung sounds clear to auscultate all lung garcia. No pain elicited with palpation of the anterior thorax. Abdomen: Nontender, no abnormalities noted. Skin: Warm, dry, no erythema, no rash. Back: No tenderness, no deformities. Extremities: No tenderness, no cyanosis, no clubbing, ROM intact, no edema. Neurologic: Alert and oriented X 3, normal motor function, normal sensory function, no focal deficits noted. Psychologic: Affect normal, judgement normal, mood normal. . Current Patient Data: Labs: Laboratory Tests Test 08/21/21 09:44 White Blood Count 5.0 x10^3/uL Red Blood Count 4.88 x10^6/uL Hemoglobin 14.5 g/dL Hematocrit 42.7 % Mean Corpuscular Volume 87 fL Mean Corpuscular Hemoglobin 30 pg Mean Corpuscular Hemoglobin Concent 34 g/dL Red Cell Distribution Width 14.8 % Platelet Count 234 x10^3/uL Neutrophils (%) (Auto) 67 % Lymphocytes (%) (Auto) 21 % Monocytes (%) (Auto) 9 % Eosinophils (%) (Auto) 2 % Basophils (%) (Auto) 1 % Neutrophils # (Auto) 3.4 x10^3/uL Lymphocytes # (Auto) 1.1 x10^3/uL Monocytes # (Auto) 0.4 x10^3/uL Eosinophils # (Auto) 0.1 x10^3/uL Basophils # (Auto) 0.1 x10^3/uL Sodium Level 139 mmol/L Potassium Level 3.7 mmol/L Chloride Level 102 mmol/L Carbon Dioxide Level 29 mmol/L Anion Gap 8 Blood Urea Nitrogen 13 mg/dL Creatinine 0.7 mg/dL Estimated GFR (Cockcroft-Gault) 85.9 BUN/Creatinine Ratio 19 Glucose Level 94 mg/dL Calcium Level 9.3 mg/dL Total Bilirubin 0.2 mg/dL Direct Bilirubin 0.1 mg/dL Aspartate Amino Transf (AST/SGOT) 22 U/L Alanine Aminotransferase (ALT/SGPT) 33 U/L Alkaline Phosphatase 100 U/L Troponin I Quantitative < 0.017 ng/mL [id number]-[id number] Natriuretic Peptide 158 pg/mL Total Protein 7.7 g/dL Albumin 3.9 g/dL Albumin/Globulin Ratio 1.0 Lipase 95 U/L Current Medications Medications (Trade) Dose Ordered Sig/Augustine Route PRN Reason Start Time Stop Time Status Last Admin Dose Admin Aspirin (Aspirin Chewable) 324 mg 1X ONCE PO 08/21/21 10:15 08/21/21 10:16 DC 08/21/21 10:07 Ondansetron HCl (Zofran) 4 mg 1X ONCE IVP 08/21/21 10:00 08/21/21 10:01 DC 08/21/21 10:06 Ketorolac Tromethamine (Toradol 30mg Vial) 30 mg 1X ONCE IVP 08/21/21 10:00 08/21/21 10:01 DC 08/21/21 10:06 EKG: EKG: EKG performed at 928 by ED nursing staff shows a normal sinus rhythm heart rate 81 bpm with left axis deviation, LA interval 0.132, QTc interval 0.433, no acute STEMI, no ACS, no acute ischemia appreciated, EKG interpreted by ED attending physician Dr. Chua. Radiology/Procedures: Radiology/Procedures: PATIENT: JABIER WEBBER ACCOUNT: [id number] : 1965 LOCATION: ER AGE: 56 SEX: F EXAM STATUS: PRE ER ORD. PHYSICIAN: DAVE CH APRN REASON: Chest pain PROCEDURE: PORTABLE CHEST 1V EXAM: Chest, single view. HISTORY: Chest pain. COMPARISON: 07/05/2021 FINDINGS: A frontal view of the chest is obtained. There is no infiltrate, pleural effusion or pneumothorax. The heart is normal in size. There is partial resolution of cervical spinal fusion instrumentation. IMPRESSION: No acute pulmonary finding. Electronically signed by: Yoly Sandoval MD (08/21/2021 10:29 AM) [facility] Course & Med Decision Making: Course & Med Decision Making Pertinent Labs and Imaging studies reviewed. (See chart for details) 56-year-old female, vital signs reviewed, presents emergency department concerning sudden onset right-sided chest pain with radiation to back. Physical examination concerning for cardiorespiratory process versus nonspecific chest wall pain, will start cardiac work-up in the ED today. 4 mg Zofran for nausea, 324 aspirin, Toradol for headache. Patient is EKG, cardiac labs, chest x-ray unremarkable, nonconcerning for c ardiorespiratory process, upon reevaluation of the patient, patient states she is pain-free and feels much better now. Patient was given IV Toradol for pain, discussed with patient most likely musculoskeletal chest wall pain, low likelihood exacerbation from breast cancer radiation therapy as she has had no problems and finished radiation therapy 7 days ago. Discussed at length with patient strict follow-up with primary care this week, return to ER precautions or concerns, NSAID therapy for returning chest wall pain. Continue all home medications, patient is amenable to ED discharge planning. Discussed with the patient all findings and diagnostic testing as well as the need to follow-up with their primary care provider for further evaluation and treatment or return to the ED if any new or worsening symptoms. Strict return precautions were also discussed at length, the patient voiced understanding and agreement with the discharge planning. The patient was nontoxic in appearance, in no apparent distress, and hemodynamically stable at the time of disposition. Dragon Disclaimer: Dragon Disclaimer: This electronic medical record was generated, in whole or in part, using a voice recognition dictation system. Departure Departure Impression: Primary Impression: Chest wall pain Disposition: HOME / SELF CARE / HOMELESS Condition: GOOD Referrals: SAADIA JONES MD (PCP) Patient Instructions: Chest Wall Pain Additional Instructions: You were seen in the emergency department today for chest pain and extensive cardiorespiratory work-up was performed, your physical presentation and lab results with x-ray results and EKG are reassuring that you are not having a heart attack or pneumonia or other cardiopulmonary process that would require admission to the hospital or immediate intervention by specialist. As we discussed, this chest pain is most likely musculoskeletal in nature as the pain medication given helped as you stated. Please continue to use NSAIDs for ongoing aches and pains in the chest area, please follow-up with your primary care physician this week for reevaluation and ongoing pain management. Return to the emergency department for worsening symptoms or other concerns. Thank you for visiting our Emergency Department. It was a pleasure taking care of you today in the emergency department and we appreciate you trusting us with your care. If any additional problems come up don't hesitate to return to visit us. Please follow up with your primary care provider so they can plan additional care if needed and know about the problem that you had. If symptoms worsen come back to the Emergency Department. Any concerning symptoms that start such as chest pain, shortness of air, weakness or numbness on one side of the body, running high fevers or any other concerning symptoms return to the ER. EMERGENCY DEPARTMENT GENERAL DISCHARGE INSTRUCTIONS Thank you for coming to [facility] Emergency Department (ED) today and trusting us with you care. We trust that you had a positive experience in our Emergency Department. If you wish to speak to the department management, you may call the Director at [phone]. YOUR FOLLOW UP INSTRUCTIONS ARE FOLLOWS: 1. Do you have a private Doctor? If you do not have a private doctor, please ask for a resource list of physicians or clinics that may be able to assist you with follow up care. 2. The Emergency Physicain has interpreted your x-rays. The X-Ray specialist will also review them. If there is a change in the findings, you will be notified in 48 hours when at all possible. 3. A lab test or culture has been done, your results will be reviewed and you will be notified if you need a change in treatment. ADDITIONAL INSTRUCTIONS AND INFORMATION: 1. Your care today has been supervised by a physician who is specially trained in emergency care. Many problems require more than one evaluation for a complete diagnosis and treatment. We recommend that you schedule your follow up appointment as recommended to ensure complete treatment of you illness or injury. If you are unable to obtain follow up care and continue to have a problem, or if your condition worsens, we recommend that you return to the ED. 2. We are not able to safely determine your condition over the phone nor are we able to give sound medical advice over the phone. For these safety reasons, if you call for medical advice we will ask you to come to the ED for further evaluation. 3. If you have any questions regarding these discharge instructions please call the ED at [phone]. SAFETY INFORMATION: In the interest of safety, wellness, and injury prevention; we encourage you to wear your sealbelt, if you smoke; quite smoking, and we encourage family to use a protective helmet for bicycling and other sporting events that present an increased risk for head injury. IF YOUR SYMPTOMS WORSEN OR NEW SYMPTOMS DEVELOP, OR YOU HAVE CONCERNS ABOUT YOUR CONDITION; OR IF YOUR CONDITION WORSENS WHILE YOU ARE WAITING FOR YOUR FOLLOW UP APPOINTMENT; EITHER CONTACT YOUR PRIMARY CARE DOCTOR, THE PHYSICIAN WHOSE NAME AND NUMBER YOU WERE GIVEN, OR RETURN TO THE ED IMMEDIATELY. DAVE CH APRN Aug 21, 2021 10:01
[2021-08-21 10:07] LABS: CALCIUM 9.3 mg/dL (8.5-10.1); CREATININE 0.7 mg/dL (0.6-1.0); GFR 85.9; POTASSIUM 3.7 mmol/L (3.5-5.1)
[2021-08-21 10:12] LABS: ALBUMIN 3.9 g/dL (3.4-5.0); DIRECT BILIRUBIN 0.1 mg/dL (0.0-0.2); TOTAL BILIRUBIN 0.2 mg/dL (0.2-1.0); TOTAL PROTEIN 7.7 g/dL (6.4-8.2)
[2021-08-21] MEDS ORDERED: ASPIRIN CHEWABLE 81 MG TABLET. PO ONE (10:15)
--- NOTE | 2021-08-21 10:31 | RAD ---
EXAM: Chest, single view. HISTORY: Chest pain. COMPARISON: 07/05/2021 FINDINGS: A frontal view of the chest is obtained. There is no infiltrate, pleural effusion or pneumo thorax. The heart is normal in size. There is partial resolution of cervical spinal fusion instrument ation. IMPRESSION: No acute pulmonary finding. Electronically signed by: Yoly Sandoval MD (08/21/2021 10:29 AM) [facility]
[2021-08-21 11:58] VITALS: BP 140/74
== END 2021-08-21 13:09 | disposition home or self-care (01) ==
LOC: ER 09:26
DX: R07.89 Other chest pain (principal); R11.0 Nausea; Z88.5 Allergy status to narcotic agent
CPT/HCPCS: 71045; 80053; 80076; 83690; 83880; 84484; 85025; 96374; 96375; 99285; J1885; J2405; 36415; 93005

== ENCOUNTER → 2021-08-22 | Outpatient (CLI) | payer OTHER ==
[2021-08-21 11:58] VITALS: BP 140/74
[~2021-08-22] MED LIST changes: +IOHEXOL 180 MG/ML 10 ML VIAL. ONE; +methylPREDNISolone ACETATE 80 MG/ML VIAL. ONE
--- NOTE | 2021-08-22 08:56 | PDOC ---
Progress Note - Pain Clinic Date of Service: DOS: DATE: 08/22/21 TIME: 08:52 Diagnosis: Dx: Lumbar and lumbosacral spondylosis Lumbar radiculopathy with lumbar degenerative disc disease History or Present Illness: HPI: 56-year-old female returns for follow-up last seen July 07, 2021 following lumbar radiofrequency ablation on the left side patient reports 100% improvement with her back pain however she has a new pain now starting up about 4 to 6 weeks ago which became much more noticeable in the posterior gluteus posterior lateral thigh posterior calf radiating from the back into the and calf as noted which is new patient not had the radiating pain to that extent ever before. Patient reports her back still exist doing very well with no significant pain in the back itself is radiating pain out into the hip and the lower extremity patient reports is an 8-9 on scale 10 at all times over the past week average worst and least is an 8-9 today patient reports sharp shooting stabbing radiating shooting into the left lower extremity which again is a new finding for her. Patient reports no recent injury or accident is difficult with sleeping at night she is having difficulty with walking standing from sitting for prolonged periods aggravates pain it does awaken her from sleep about every 4 hours. Patient reports no loss of motor function no bowel or bladder incontinence. Patient has been taking [id number] oral analgesics Tylenol and Motrin which decrease the pain but only by about 20 to 30%. Patient's been doing some stretching exercises as well which has not been significantly decreasing the pain. Physical Exam: VS: Blood pressure is 137/80 pulse 68 respirations 18 temperature is 98.7 F height is 5 feet 9 inches weight is 236 pounds. PE: PHYSICAL EXAMINATION: GENERAL: The patient is awake, alert, oriented, appropriate, very pleasant in demeanor HEENT: Shows normocephalic, atraumatic. Extraocular movements are intact and symmetrical. Oral cavity: Mucous membranes moist and pink. Dentition is intact. NECK: Shows anterior throat supple without palpable lymphadenopathy noted. Swallow reflex symmetrical. CHEST: Shows normal on inspection. Breath sounds are clear bilaterally, no rales or rhonchi. HEART: Shows S1, S2 clear. No murmurs auscultated. ABDOMEN: Soft, nontender, nondistended, obese. No palpable organomegaly is noted. BACK: Shows spine grossly in the midline. Normal-appearing cervical lordotic curvature. There is slightly increased thoracic kyphosis, some minor flattening of the lumbar lordotic curvature. Lumbar paraspinous muscles show symmetrical on inspection, on palpation shows some moderate tenderness diffusely throughout the upper, middle and lower distribution of the paraspinous muscles without specific trigger points, without radiation of pain. The patient has good rotational motion of the lumbar spine, both laterally as well as extension and flexion without significant difficulty. No tenderness over the spinous processes, sacrum or sacroiliac regions. EXTREMITIES: Lower extremities show deep tendon reflexes 2+ in the patellar and tendo calcaneus tendons. Motor exam is 5 on a scale of 5 with right dorsiflexion, extension, quadriceps and hamstring flexion and 5/5 on the left. Peripheral pulses are 1+ posterior tibial. No peripheral edema is noted bilaterally. Lower extremities are warm and dry to touch, equal in color and a ppearance. SKIN: Shows warm and dry, good turgor. No edema. No sores, rashes or bruising throughout. Procedure: Procedure: Options were discussed with the patient. Patient chart was reviewed as her current medication regimen updated current review of systems updated today as well. We will proceed with a lumbar epidural steroid injection today with fluoroscopic guidance. Risks were discussed including but not limited to: Bleeding, infection, possibility of epidural hematoma and subsequent neurological compromise, dural puncture, headaches, spinal cord and/or nerve damage, side effects of steroid medication, and poor results regarding pain control. Patient understands and wished to proceed. Patient will return to clinic in approximate 2 weeks for follow-up, was counseled as return appointment, activity level, and side effects to be aware of. Medication Injected: Med Injected: Procedure is lumbar epidural steroid injection under local anesthetic using sterile prep and drape at the L5-S1 level using C-arm fluoroscopic guidance in both AP and lateral views medications injected is 120 mg Depo-Medrol +10mL preservative-free normal saline and 2 mL contrast- condition at discharge is stable patient tolerated procedure well had no complications. Condition at Discharge: Condition at Discharge: Condition at discharge is stable, patient tolerated the procedure well and had no complications. MACO MOFFETT MD Aug 22, 2021 08:56
--- NOTE | 2021-08-22 08:56 | PDOC4 ---
Procedure Note: ICD 10 Code: ICD 10 Code: M54.17 M51.87 Procedure Note: Patient was consented for lumbar epidural steroid injection with fluoroscopic guidance. Risks were discussed including but not limited to: Bleeding, infection, possibility of epidural hematoma and subsequent neurological compromise, dural puncture, headaches, spinal cord and/or nerve damage, side effects of steroid medication, and poor results regarding pain control. Patient understands and wished to proceed. Procedure is lumbar epidural steroid injection under local anesthetic using sterile prep and drape at the L5-S1 level using C-arm fluoroscopic guidance in both AP and lateral views medications injected is 120 mg Depo-Medrol +10mL preservative-free normal saline and 2 mL contrast- condition at discharge is stable patient tolerated procedure well had no complications. MACO MOFFETT MD Aug 22, 2021 08:56
== END | disposition home or self-care (01) ==
LOC: PNCL 08:03
PROVIDERS: ATTEND Anesthesiology
DX: M51.16 Intervertebral disc disorders with radiculopathy, lumbar region (principal); M47.26 Other spondylosis with radiculopathy, lumbar region; G47.30 Sleep apnea, unspecified; M19.90 Unspecified osteoarthritis, unspecified site; E11.9 Type 2 diabetes mellitus without complications; E03.9 Hypothyroidism, unspecified; F41.9 Anxiety disorder, unspecified; Z90.710 Acquired absence of both cervix and uterus; Z98.890 Other specified postprocedural states; Z79.899 Other long term (current) drug therapy; Z88.8 Allergy status to other drugs, medicaments and biological substances; Z72.89 Other problems related to lifestyle
CPT/HCPCS: 62323; J1040; Q9965

== ENCOUNTER → 2021-09-05 | Outpatient (CLI) | payer OTHER ==
[2021-08-21 11:58] VITALS: BP 140/74
[~2021-09-05] MED LIST changes: +methylPREDNISolone ACETATE 40 MG/ML VIAL. ONE
--- NOTE | 2021-09-05 09:28 | PDOC ---
Progress Note - Pain Clinic Date of Service: DOS: DATE: 09/05/21 TIME: 09:25 Diagnosis: Dx: Lumbar radiculopathy lumbar degenerative disease lumbar and lumbosacral spondylosis History or Present Illness: HPI: 56-year-old female returns for follow-up status post lumbar epidural steroid injection x1 most recently August 22, 2020 patient reports he did very well first week but 90% improvement with the pain now returning in the low back and left lower extremity posterior gluteus posterior thigh posterior calf patient reports it is not as far down the leg as it was after the first injection but still radiating posterior gluteus and thigh patient reports is worse with walking standing changing positions initially she do much better with distance walking doing household activities traveling with greater ease and comfort doing work activities and sleeping better at night patient reports has begun to awaken her sleep again once better 4 hours or so. Patient reports no bowel or bladder incontinence. Patient rates her pain as 8-9 on scale 10 at average least at worst and is an 8-9 today. Pain scribes a sharp and shooting tingling burning cramping can be radiating constant unbearable at times Physical Exam: VS: Blood pressure is 146/89 pulse 85 respirations 18 temperature 98.4 F weight is 232 pounds PE: PHYSICAL EXAMINATION: GENERAL: The patient is awake, alert, oriented, appropriate, very pleasant in demeanor HEENT: Shows normocephalic, atraumatic. Extraocular movements are intact and symmetrical. Oral cavity: Mucous membranes moist and pink. Dentition is intact. NECK: Shows anterior throat supple without palpable lymphadenopathy noted. Swallow reflex symmetrical. CHEST: Shows normal on inspection. Breath sounds are clear bilaterally, no rales rhonchi or wheezes auscultated. HEART: Shows S1, S2 clear. No murmurs auscultated. ABDOMEN: Soft, nontender, nondistended, obese. No palpable organomegaly is noted. BACK: Shows spine grossly in the midline. Normal-appearing cervical lordotic curvature. There is slightly increased thoracic kyphosis, some minor flattening of the lumbar lordotic curvature. Lumbar paraspinous muscles show symmetrical on inspection, on palpation shows some moderate tenderness diffusely throughout the upper, middle and lower distribution of the paraspinous muscles, without specific trigger points, without radiation of pain. The patient has good rotational motion of the lumbar spine, both laterally as well as extension and flexion without significant difficulty. EXTREMITIES: Lower extremities show deep tendon reflexes 2+ in the patellar and tendo calcaneus tendons. Motor exam is 5 on a scale of 5 with right dorsiflexion, extension, quadriceps and hamstring flexion and 5/5 on the left. Peripheral pulses are 1+ posterior tibial. No peripheral edema is noted bilaterally. Lower extremities are warm and dry to touch, equal in color and appearance. SKIN: Shows warm and dry, good turgor. No edema. No sores, rashes or bruising throughout. Procedure: Procedure: Options discussed with patient. Patient chart was reviewed as her current medication regimen updated current view of systems updated today as well. We will proceed with a lumbar epidural steroid injection today with fluoroscopic guidance. Risks were discussed including but not limited to: Bleeding, infection, possibility of epidural hematoma and subsequent neurological compromise, dural puncture, headaches, spinal cord and/or nerve damage, side effects of steroid medication, and poor results regarding pain control. Patient understands and wished to proceed. Patient return to clinic in approximately 2 weeks for follow-up, was counseled return appointment, typical, and side effects to be aware of. Medication Injected: Med Injected: Procedure is lumbar epidural steroid injection under local anesthetic using s terile prep and drape at the L5-S1 level using C-arm fluoroscopic guidance in both AP and lateral views medications injected is 120 mg Depo-Medrol +10mL preservative-free normal saline and 2 mL contrast- condition at discharge is stable patient tolerated procedure well had no complications. Condition at Discharge: Condition at Discharge: Condition at discharge stable, patient noted that she is well had no complications. MACO MOFFETT MD Sep 05, 2021 09:28
--- NOTE | 2021-09-05 09:29 | PDOC4 ---
Procedure Note: ICD 10 Code: ICD 10 Code: M5 4.17 M51.87 M4 7.816 Procedure Note: Patient was consented for lumbar epidural steroid traction with fluoroscopic guidance. Risks were discussed including but not limited to: Bleeding, infection, possibility of epidural hematoma and subsequent neurological compromise, dural puncture, headaches, spinal cord and/or nerve damage, side effects of steroid medication, and poor results regarding pain control. Patient understands and wished to proceed. Procedure is lumbar epidural steroid injection under local anesthetic using st erile prep and drape at the L5-S1 level using C-arm fluoroscopic guidance in both AP and lateral views medications injected is 120 mg Depo-Medrol +10mL preservative-free normal saline and 2 mL contrast- condition at discharge is stable patient tolerated procedure well had no complications. MACO MOFFETT MD Sep 05, 2021 09:29
== END | disposition home or self-care (01) ==
LOC: PNCL 08:07
PROVIDERS: ATTEND Anesthesiology
DX: M51.16 Intervertebral disc disorders with radiculopathy, lumbar region (principal); M47.27 Other spondylosis with radiculopathy, lumbosacral region; E11.9 Type 2 diabetes mellitus without complications; E03.9 Hypothyroidism, unspecified; M19.90 Unspecified osteoarthritis, unspecified site; G47.30 Sleep apnea, unspecified; Z90.710 Acquired absence of both cervix and uterus; Z98.890 Other specified postprocedural states; Z79.899 Other long term (current) drug therapy; Z72.89 Other problems related to lifestyle; Z88.8 Allergy status to other drugs, medicaments and biological substances
CPT/HCPCS: 62323; J1030; J1040; Q9965

== ENCOUNTER → 2021-09-15 | Outpatient (CLI) | payer OTHER ==
[2021-08-21 11:58] VITALS: BP 140/74
[~2021-09-15] MED LIST changes: -IOHEXOL 180 MG/ML 10 ML VIAL. ONE; -methylPREDNISolone ACETATE 40 MG/ML VIAL. ONE; -methylPREDNISolone ACETATE 80 MG/ML VIAL. ONE
== END ==
LOC: LAB 07:48
PROVIDERS: ATTEND Internal Medicine Pulmonary Disease
DX: J02.9 Acute pharyngitis, unspecified (principal); R09.81 Nasal congestion; Z20.822 Contact with and (suspected) exposure to COVID-19
CPT/HCPCS: U0003; U0005

== ENCOUNTER → 2021-09-19 | Outpatient (CLI) | payer OTHER ==
[2021-08-21 11:58] VITALS: BP 140/74
[~2021-09-19] MED LIST changes: +BUPIVACAINE MPF 0.25% 10 ML VIAL. ONE; +IOHEXOL 180 MG/ML 10 ML VIAL. ONE; +methylPREDNISolone ACETATE 80 MG/ML VIAL. ONE
--- NOTE | 2021-09-19 08:19 | PDOC ---
Progress Note - Pain Clinic Date of Service: DOS: DATE: 09/19/21 TIME: 08:16 Diagnosis: Dx: Lumbar radiculopathy with lumbar degenerative disease and lumbar and lumbosacral spondylosis History or Present Illness: HPI: 56-year-old female returns for follow-up status post lumbar epidural to injection x2. Patient reports about 80% improved initially but generally about 20% provement after several days the pain returning the left lower extremity as well as the low back patient reports an 8-9 on scale of 10 on average least and worst is an 8-9 today patient reports that sharp and shooting tingling stabbing radiating posterior gluteus on the left side posterior thigh and some in the posterior calf and hip as well patient reports no loss of motor function with significant increase in pain with walking standing changing positions wakes her from sleep at least every 4 hours or so. Patient reports initially he is doing better with distance walking doing household activities work activities but after about a week the pain returned fairly significantly on the left side only as described. Patient reports no bowel or bladder incontinence. Physical Exam: VS: Blood pressure is 156/96 pulse 78 respirations are 18 temperature is 98.4 F height is 5 feet 9 inches weight is 233 pounds PE: PHYSICAL EXAMINATION: GENERAL: The patient is awake, alert, oriented, appropriate, very pleasant in demeanor HEENT: Shows normocephalic, atraumatic. Extraocular movements are intact and symmetrical. Oral cavity: Mucous membranes moist and pink. Dentition is intact. NECK: Shows anterior throat supple without palpable lymphadenopathy noted. Swallow reflex symmetrical. CHEST: Shows normal on inspection. Breath sounds are clear bilaterally, no rales or rhonchi. HEART: Shows S1, S2 clear. No murmurs auscultated. ABDOMEN: Soft, nontender, nondistended, obese. No palpable organomegaly is noted. BACK: Shows spine grossly in the midline. Normal-appearing cervical lordotic curvature. There is slightly increased thoracic kyphosis, some minor flattening of the lumbar lordotic curvature. Lumbar paraspinous muscles show symmetrical on inspection, on palpation shows some moderate tenderness diffusely throughout the upper, middle and lower distribution of the paraspinous muscles without specific trigger points, without radiation of pain. The patient has good rotational motion of the lumbar spine, both laterally as well as extension and flexion with mild tenderness with extension but not with forward flexion right or left lateral rotation. EXTREMITIES: Lower extremities show deep tendon reflexes 2+ in the patellar and tendo calcaneus tendons. Motor exam is 5 on a scale of 5 with right dorsiflexion, extension, quadriceps and hamstring flexion and 5/5 on the left. Peripheral pulses are 1+ posterior tibial. No peripheral edema is noted bilaterally. Lower extremities are warm and dry to touch, equal in color and appearance. SKIN: Shows warm and dry, good turgor. No edema. No sores, rashes or bruising throughout. Procedure: Procedure: Options discussed with patient. Patient chart was reviewed as her current medication regimen updated current review of systems updated today as well. We will proceed with a left-sided L5-S1 transforaminal injection today with fluoroscopic guidance. Risks were discussed including but not limited to: Bleeding, infection, possibility of epidural hematoma and subsequent neurological compromise, dural puncture, headaches, spinal cord and/or nerve damage, potential injection into the vertebral artery at that level and permanent ischemic damage, side effects of steroid medication, and poor results regarding pain control. Patient understands and wished to proceed. Patient will return to the clinic in approximately 2 weeks for follow-up, was counseled return appointment activity level and side effects to be aware of. Medication Injected: Med Injected: Under sterile prep and drape patient was placed in prone position using C-arm fluoroscopic guidance to identify the L5-S1 distribution oblique and slightly cephalad angled C arm. The left L5-S1 target was identified and using lidocaine for anesthetizing the skin 22-gauge Althea pencil point needle was then used to enter the skin and into the subcutaneous tissues using direct C-arm fluoroscopic guidance to guide the needle into the transforaminal aspect of the left L5-S1 vertebrae this was confirmed with lateral views showing the needle tip in the superior aspect of the paravertebral region. Aspiration was noted to be negative, -1.5 cc of contrast was then injected with good spread both medially into the epidural space as well as laterally along the nerve root without uptake and without distribution and uptake on digital subtraction. At this time, a solution containing 2 cc of 0.25% bupivacaine and 80 mg of Depo- Medrol was then injected. Needle was withdrawn and sterile bandage was applied. Patient tolerated procedure well had no immediate complications Condition at Discharge: Condition at Discharge: Condition at discharge stable, patient tolerated procedure well and had no complications. MACO MOFFETT MD Sep 19, 2021 08:19
== END | disposition home or self-care (01) ==
LOC: PNCL 07:28
PROVIDERS: ATTEND Anesthesiology
DX: M51.16 Intervertebral disc disorders with radiculopathy, lumbar region (principal); M47.27 Other spondylosis with radiculopathy, lumbosacral region; G47.30 Sleep apnea, unspecified; M19.90 Unspecified osteoarthritis, unspecified site; E11.9 Type 2 diabetes mellitus without complications; E03.9 Hypothyroidism, unspecified; F41.9 Anxiety disorder, unspecified; Z90.710 Acquired absence of both cervix and uterus; Z98.890 Other specified postprocedural states; Z79.899 Other long term (current) drug therapy; Z72.89 Other problems related to lifestyle; Z88.8 Allergy status to other drugs, medicaments and biological substances
CPT/HCPCS: 64483; J1040; J3490; Q9965

== ENCOUNTER → 2021-10-03 | Outpatient (CLI) | payer OTHER ==
[~2021-10-03] MED LIST changes: -BUPIVACAINE MPF 0.25% 10 ML VIAL. ONE; +IBUP-1060 PO; -IOHEXOL 180 MG/ML 10 ML VIAL. ONE; -methylPREDNISolone ACETATE 80 MG/ML VIAL. ONE
--- NOTE | 2021-10-03 16:52 | RAD ---
MR LUMBAR SPINE WO [id number] Date: 10/03/2021 3:00 PM Indication: RADICULOPATHY, NUMBNESS DOWN LEFT LOWER EXTREMITY Comparison: None. Technique: Multi-planar multi-weighted magnetic resonance imaging of the lumbar spine was performed w ithout intravenous contrast using the standard lumbar spine protocol. FINDINGS: The lumbar spine is normally aligned. No acute fracture. Mild multilevel degenerative disc desiccatio n and disc height loss. No marrow replacing process to suggest malignancy. The conus terminates at a normal level. No abnormal signal is seen within the visualized distal spina l cord. No clumping of intrathecal nerve roots. No soft tissue abnormality in the visualized abdomen or pelvis. T12-L1: No disc bulge. No facet arthropathy. No significant spinal stenosis or neural foraminal narro wing. L1-L2: No disc bulge. No facet arthropathy. No significant spinal stenosis or neural foraminal narrow ing. L2-L3: Disc bulge. Mild facet arthropathy. No significant spinal stenosis or neural foraminal narrowi ng. L3-L4: Disc bulge. Mild facet arthropathy. No significant spinal stenosis or neural foraminal narrowi ng. L4-L5: Disc bulge. Mild facet arthropathy. Mild spinal stenosis. Mild left neural foraminal narrowing . L5-S1: Disc bulge. Mild facet arthropathy. No significant spinal stenosis. Mild left neural foraminal narrowing. IMPRESSION: Mild lumbar spondylosis. Electronically signed by: Avni Hemphill MD (10/03/2021 4:50 PM) [facility]
== END | disposition home or self-care (01) ==
LOC: MRI 14:50
PROVIDERS: ATTEND Anesthesiology
DX: M47.26 Other spondylosis with radiculopathy, lumbar region (principal); M48.061 Spinal stenosis, lumbar region without neurogenic claudication; G47.30 Sleep apnea, unspecified; M19.90 Unspecified osteoarthritis, unspecified site; E11.9 Type 2 diabetes mellitus without complications; E03.9 Hypothyroidism, unspecified; F41.9 Anxiety disorder, unspecified; Z90.710 Acquired absence of both cervix and uterus; Z98.890 Other specified postprocedural states; Z79.899 Other long term (current) drug therapy; Z88.8 Allergy status to other drugs, medicaments and biological substances
CPT/HCPCS: 72148

== ENCOUNTER → 2021-10-11 | Outpatient (CLI) | payer OTHER ==
[~2021-10-11] MED LIST changes: +BUPIVACAINE MPF 0.25% 10 ML VIAL. ONE; +IOHEXOL 180 MG/ML 10 ML VIAL. ONE; +methylPREDNISolone ACETATE 40 MG/ML VIAL. ONE; +methylPREDNISolone ACETATE 80 MG/ML VIAL. ONE
--- NOTE | 2021-10-11 08:27 | PDOC ---
Progress Note - Pain Clinic Date of Service: DOS: DATE: 10/11/21 TIME: 08:23 Diagnosis: Dx: Low back pain with lumbar degenerative disease and lumbar and lumbosacral spondylosis History or Present Illness: HPI: 56-year-old female returns for follow-up status post lumbar epidural steroid injection as well as transforaminal injection on the left without significant resolution in her left lower extremity pain patient reports the pain is in the low back and left side as well as left leg also now in the right low back as well in the back is becoming much more noticeable but still pain in the in the left leg we did have an MRI scan performed which shows only some mild lumbar spondylosis with mild disc bulges throughout the lumbar spine without any significant stenosis only mild left neuroforaminal narrowing at L5-S1. Patient reports still significant pain in the low back specifically and some in the left leg as noted patient reports 8-9 at all times worst least and average over the last week is 8-9 today patient scribes a sharp tight shooting tingling burning stabbing radiating can be constant can be unbearable at times as well patient did very well with radiofrequency ablation in May 23, 2021 and we discussed on the phone with her yesterday possibilities of pain coming from the facet joints once again. Patient reports that "my whole back is so sore". Patient reports no loss of motor function no bowel or bladder incontinence. Physical Exam: VS: Blood pressure is 134/94 pulse 69 respiration 16 temperature 98.3 F weight is 235 pounds PE: PHYSICAL EXAMINATION: GENERAL: The patient is awake, alert, oriented, appropriate, very pleasant in demeanor. HEENT: Shows normocephalic, atraumatic. Extraocular movements are intact and s ymmetrical. Oral cavity: Mucous membranes moist and pink. Dentition is intact. NECK: Shows anterior throat supple without palpable lymphadenopathy noted. Swallow reflex symmetrical. CHEST: Shows normal on inspection. Breath sounds are clear bilaterally. HEART: Shows S1, S2 clear. No murmurs auscultated. ABDOMEN: Soft, nontender, nondistended, obese. No palpable organomegaly is noted. BACK: Shows spine grossly in the midline. Normal-appearing cervical lordotic curvature. There is slightly increased thoracic kyphosis, some minor flattening of the lumbar lordotic curvature. Lumbar paraspinous muscles show symmetrical on inspection, on palpation shows some moderate tenderness diffusely throughout the upper, middle and lower distribution of the paraspinous muscles, but without specific trigger points, without radiation of pain. The patient has good rotational motion of the lumbar spine, both laterally as well as extension and flexion with significant tenderness with extension of the lumbar spine and axial loading as well as left greater than right lateral rotation greater than 10 degrees, forward flexion at 45 degrees is performed without significant difficulty. Moderate tenderness over the posterior superior iliac spine on the left as well as the sacroiliac joint but the right is nontender. EXTREMITIES: Lower extremities show deep tendon reflexes 2+ in the patellar and tendo calcaneus tendons. Motor exam is 5 on a scale of 5 with right dorsiflexion, extension, quadriceps and hamstring flexion and 5/5 on the left. Peripheral pulses are 1+ posterior tibial. No peripheral edema is noted bilaterally. Lower extremities are warm and dry to touch, equal in color and appearance. SKIN: Shows warm and dry, good turgor. No edema. No sores, rashes or bruising throughout. Procedure: Procedure: Options discussed with patient. Patient chart reviews her current medication regimen updated current review of systems updated today as well. We will proceed with bilateral L4-5 and L5-S1 medial branch facet blocks today with fluoroscopic guidance. Risks were discussed including but not limited to: Bleeding, infection, possibility of epidural hematoma and subsequent neurological compromise, dural puncture, headaches, spinal cord and/or nerve damage, side effects of steroid medication, and poor results regarding pain control. Patient understands and wished to proceed. Patient return to clinic in approximate 2 weeks for follow-up, was counseled return appointment, activity level, and side effect to be aware of. Medication Injected: Med Injected: Under sterile prep and drape using C-arm fluoroscopic guidance AP and lateral and oblique views, bilateral L4-5 and L5-S1 facet joint MB's injections were performed, using quinke needles with stylette's x4,, medications injected: 120 mg Depo-Medrol +4 cc 0.25% bupivacaine +2 cc contrast. Condition at discharge stable patient tolerated the procedure well and no complications. Condition at Discharge: Condition at Discharge: Condition at discharge stable, patient tolerated the procedure well and had no complications. MACO MOFFETT MD Oct 11, 2021 08:27
--- NOTE | 2021-10-11 08:28 | PDOC4 ---
Procedure Note: ICD 10 Code: ICD 10 Code: M4 7.816 M4 7.817 Procedure Note: Patient was consented for bilateral lumbar facet medial branch blocks with fluoroscopic guidance. Risks were discussed including but not limited to: Bleeding, infection, possibility of epidural hematoma and subsequent neurological compromise, dural puncture, headaches, spinal cord and/or nerve damage, side effects of steroid medication, and poor results regarding pain control. Patient understands and wished to proceed. Under sterile prep and drape using C-arm fluoroscopic guidance AP and lateral and oblique views, bilateral L4-5 and L5-S1 facet joint MB's injections were performed, using quinke needles with stylette's x4,, medications injected: 120 mg Depo-Medrol +4 cc 0.25% bupivacaine +2 cc contrast. Condition at discharge stable patient tolerated the procedure well and no complications. MACO MOFFETT MD Oct 11, 2021 08:28
== END | disposition home or self-care (01) ==
LOC: PNCL 07:38
PROVIDERS: ATTEND Anesthesiology
DX: M47.816 Spondylosis without myelopathy or radiculopathy, lumbar region (principal); M51.36 Other intervertebral disc degeneration, lumbar region; G47.30 Sleep apnea, unspecified; M19.90 Unspecified osteoarthritis, unspecified site; E11.9 Type 2 diabetes mellitus without complications; E03.9 Hypothyroidism, unspecified; F41.9 Anxiety disorder, unspecified; Z79.899 Other long term (current) drug therapy; Z90.710 Acquired absence of both cervix and uterus; Z98.890 Other specified postprocedural states; Z88.8 Allergy status to other drugs, medicaments and biological substances
CPT/HCPCS: 64493; 64494; J1030; J1040; J3490; Q9965

== ENCOUNTER → 2021-11-23 | Outpatient (CLI) | payer OTHER ==
[~2021-11-23] MED LIST changes: -BUPIVACAINE MPF 0.25% 10 ML VIAL. ONE; -IOHEXOL 180 MG/ML 10 ML VIAL. ONE; -methylPREDNISolone ACETATE 40 MG/ML VIAL. ONE; -methylPREDNISolone ACETATE 80 MG/ML VIAL. ONE
--- NOTE | 2021-11-23 10:23 | RAD ---
EXAM: Left breast sonogram. HISTORY: 56-year-old female with a history of left breast cancer, status post left breast conservatio n therapy, presents with a left breast rash. TECHNIQUE: Sonographic imaging of the left breast and axilla was performed. COMPARISON: 06/12/2021. FINDINGS: There is a fluid collection within the 2:30 position 12 cm from the nipple measuring approx imately 6.2 cm in maximum length and 1.5 cm in maximum thickness. This corresponds with the location of prior lumpectomy and is consistent with a seroma. There is a smaller seroma within the right axill a at the site of prior sentinel node biopsy or lymph node dissection. There is no solid lesion. There is no architectural distortion or suspicious posterior shadowing. IMPRESSION: 1. Postoperative seromas within the posterior 2:30 position of the left breast and left axilla due to prior lumpectomy and sentinel node biopsy or lymph node dissection. The imaging appearance does not favor infected fluid collections/abscesses. 2. No suspicious correlate for a reported left breast skin rash. The patient reports a history of rad iation therapy 5 months prior to presentation. The possibility of cellulitis is not excluded. Correla te with physical exam findings and possible dermatologic consultation. 3. BI-RADS Category 3: Probably benign finding(s). Short term follow up with a diagnostic left breast mammogram in approximately 1 month can be performed to establish a 6 month post breast conservation therapy baseline. Sonographic imaging can be performed at that time to assess stability or aforementi oned postoperative changes. Electronically signed by: Yoly Sandoval MD (11/23/2021 10:21 AM) [id number]
== END ==
LOC: US 09:47
PROVIDERS: ATTEND Internal Medicine Hematology & Oncology
DX: L76.82 Other postprocedural complications of skin and subcutaneous tissue (principal); C50.112 Malignant neoplasm of central portion of left female breast; R21 Rash and other nonspecific skin eruption
CPT/HCPCS: 76641

== ENCOUNTER → 2021-12-15 | Outpatient (CLI) | payer OTHER ==
[~2021-12-15] MED LIST changes: +IOHEXOL 180 MG/ML 10 ML VIAL. IT ONE; +IOHEXOL 180 MG/ML 10 ML VIAL. ONE; +LIDOCAINE 1% Multi-Dose 20 ML VIAL. INJ ONE
--- NOTE | 2021-12-15 09:25 | RAD ---
EXAM: Fluoroscopic guided lumbar puncture for CT myelography; lumbar spine CT myelogram. HISTORY: 56-year-old female presents with left-sided sciatica and left lower extremity pain. TECHNIQUE: The risks of the procedure discussed with the patient and written and verbal consent was o btained. A timeout was performed. Fluoroscopic imaging of the lumbar spine was performed and a site o verlying L5-S1 was selected for needle entry. The skin in this location was sterilely prepped, draped and infiltrated with 1 percent lidocaine. A 22-gauge spinal needle was advanced into the thecal sac. 15 cc Omnipaque 180 intrathecal contrast was injected. The needle was removed and a sterile measures placed at the needle entry site. Prone and standing neutral, flexion and extension images were obtai fely. A total of 4 fluoroscopic images were obtained for a total fluoroscopy time of 0.1 minute. The p atient was transferred to the CT suite for the post injection CT portion of the exam. The patient angelo erated the procedure without complication and was discharged one hour following the procedure in stab le condition. *One or more of the following individualized dose reduction techniques were utilized for this examina tion: 1. Automated exposure control. 2. Adjustment of the mA and/or kV according to patient size. 3. Use of iterative reconstruction technique. COMPARISON: MRI dated 10/03/2021. FINDINGS: There is mild lumbar levoscoliosis. There is no significant listhesis. There is no abnormal motion between flexion and extension. The vertebral bodies are normal in height. The disc spaces are preserved. There is mild multilevel degenerative endplate remodeling. There is no fracture or suspic ious osseous lesion. The conus terminates at L1. There is degenerative subchondral sclerosis, spurrin g and subchondral cyst formation involving the sacroiliac joints. There is a vacuum phenomenon involv ing the sacroiliac joints. There is no osseous erosion. At T12-L1, there is a minimal disc bulge and mild endplate remodeling. There is no stenosis. At L1-L2, there is minimal disc bulge and mild endplate remodeling. There are is no stenosis. At L2-L3, there is a minimal shallow right paracentral disc protrusion superimposed on a mild disc bu lge and endplate remodeling. There is no stenosis. At L3-L4, there is a minimal disc bulge and endplate remodeling. There is no stenosis. At L4-L5, there is a mild disc bulge and endplate remodeling. There is minimal bilateral facet arthro deangelo. There is minimal left extraforaminal stenosis. At L5-S1, there is a shallow left foraminal to extra foraminal disc protrusion and left posterior lat eral predominant endplate remodeling superimposed on a mild disc bulge. There is minimal bilateral fa cet arthropathy. There is mild left foraminal stenosis with abutment the exiting left L5 nerve root. IMPRESSION: 1. Mild multilevel degenerative change involving the lumbar spine, described in detail above. This is associated with minimal left extraforaminal stenosis at L4-L5 and mild left foraminal stenosis with abutment the exiting left L5 nerve root at L5-S1. 2. Mild osteoarthritis involving the sacroiliac joints. Electronically signed by: Yoly Sandoval MD (12/15/2021 9:23 AM) [id number]
== END | disposition home or self-care (01) ==
LOC: RAD 10:18
PROVIDERS: ATTEND Anesthesiology
DX: M47.26 Other spondylosis with radiculopathy, lumbar region (principal); M54.32 Sciatica, left side; M79.605 Pain in left leg; M48.061 Spinal stenosis, lumbar region without neurogenic claudication; M46.1 Sacroiliitis, not elsewhere classified; G47.30 Sleep apnea, unspecified; M19.90 Unspecified osteoarthritis, unspecified site; E03.9 Hypothyroidism, unspecified; E11.9 Type 2 diabetes mellitus without complications; Z79.899 Other long term (current) drug therapy; Z72.89 Other problems related to lifestyle; Z88.8 Allergy status to other drugs, medicaments and biological substances; Z98.890 Other specified postprocedural states
CPT/HCPCS: 62304; 72132; J3490; Q9965

== ENCOUNTER → 2021-12-18 | Outpatient (CLI) | payer OTHER ==
[~2021-12-18] MED LIST changes: -IOHEXOL 180 MG/ML 10 ML VIAL. IT ONE; -LIDOCAINE 1% Multi-Dose 20 ML VIAL. INJ ONE
--- NOTE | 2021-12-18 16:02 | PDOC ---
Progress Note - Pain Clinic Date of Service: DOS: DATE: 12/18/21 TIME: 15:55 Diagnosis: Dx: Post dural puncture headache, status post lumbar myelogram 12/15/2021 Lumbar radiculopathy with lumbar degenerative disease lumbar spondylosis History or Present Illness: HPI: 56-year-old female returns for follow-up status post lumbar epidural steroid injection as well as facet blocks also recent MRI scan which we discussed with her on the phone earlier after myelogram which patient reports she had a headache now for about 2 days Biogam was 3 days ago getting worse positional worse with standing and sitting much better with sitting or laying down but not completely gone patient reports is behind her eyes and split the back of the head as of the top of the head again much worse with positional changes with being upright sitting and standing. Patient was at work earlier today and called as the headache was becoming unbearable. We had the patient come to the clinic and lay down for about 2 hours to let the headache subside and was much better but not completely resolved. Patient reports has been pushing fluids at home also caffeine as well as oral analgesics which have not decrease the headache significantly. Patient scribes pain is sharp and stabbing in the whole head specially behind the eyes and the top of the head again positional in nature consistent with postdural puncture headache. Patient reports still significant pain in the low back and the left lower extremity as she has had previously and we discussed the findings of a L5-S1 shallow left foraminal to extraforaminal disc protrusion at the L5-S1 level with abutment of the exiting L5 nerve root. Physical Exam: VS: Blood pressure is 136/82 pulse 66 respirations 18 temperature is 98.2 F height and weight were deferred per patient's request. PE: PHYSICAL EXAMINATION: GENERAL: The patient is awake, alert, oriented, appropriate, very pleasant and demeanor HEENT: Shows normocephalic, atraumatic. Extraocular movements are intact and symmetrical. Pupils equal round reactive to light and accommodation. Patient with some mild photophobia with brighter lights in the exam room. Oral cavity: Mucous membranes moist and pink. Dentition is intact. NECK: Shows anterior throat supple without palpable lymphadenopathy noted. Swallow reflex symmetrical. CHEST: Shows normal on inspection. Breath sounds are clear bilaterally, distant but no rales rhonchi wheezes auscultated. HEART: Shows S1, S2 clear. No murmurs auscultated. ABDOMEN: Soft, nontender, nondistended. No palpable organomegaly is noted. BACK: Shows spine grossly in the midline. Normal-appearing cervical lordotic curvature. There is mildly increased thoracic kyphosis, some flattening of the lumbar lordotic curvature. Mild bruising at site of myelogram needle insertion. Lumbar paraspinous muscles show symmetrical on inspection, on palpation shows some moderate tenderness diffusely throughout the upper, middle and lower distribution of the paraspinous muscles, but without specific trigger points, without radiation of pain. The patient has good rotational motion of the lumbar spine, both laterally as well as extension and flexion without significant difficulty. No tenderness over the spinous processes, sacrum or sacroiliac re gions. EXTREMITIES: Lower extremities show deep tendon reflexes 2+ in the patellar and tendo calcaneus tendons. Motor exam is 5 on a scale of 5 with right dorsiflexion, extension, quadriceps and hamstring flexion and 5/5 on the left. Peripheral pulses are 1+ posterior tibial. No peripheral edema is noted bilaterally. Lower extremities are warm and dry. SKIN: Shows warm and dry, good turgor. No edema. No sores, rashes or bruising throughout. Procedure: Procedure: Options discussed with the patient. Patient's old chart was reviewed as her current medication regimen updated current review of systems updated today as well. We will proceed with a epidural lumbar blood patch with fluoroscopic guidance. Risk were discussed including but not limited to bleeding infection possibility of epidural hematoma and subsequent neurological compromise dural pu ncture and worsening of headache spinal nerve and/or cord damage as well as poor results regarding pain control and exposure fluoroscopy. Patient understands and wished to proceed. Patient return to clinic in approximately 1 week for follow-up. Medication Injected: Med Injected: Procedure is lumbar epidural blood patch injection under local anesthetic using sterile prep and drape at the L4-5 level using C-arm fluoroscopic guidance in both AP and lateral views, 20 cc patient is on blood taken under sterile technique from left antecubital vein sterilely transferred to epidural space, using 2 mL contrast in the epidural space and confirmed epidural spread, without washout or uptake.- condition at discharge is stable patient tolerated procedure well had no complications. Condition at Discharge: Condition at Discharge: Condition at discharge stable, patient tolerated procedure well and had no complications. MACO MOFFETT MD Dec 18, 2021 16:02
--- NOTE | 2021-12-18 16:03 | PDOC4 ---
Procedure Note: ICD 10 Code: ICD 10 Code: G97.1 Procedure Note: Patient was consented for lumbar epidural blood patch with fluoroscopic guidance risks discussed including but not limited to bleeding infection possibility of intravascular injection sequelae epidural hematoma and subsequent neurological compromise worsening of spinal headache with dural puncture as well as potential damage to nerves and cord and poor results regarding pain control. Patient understands wished to proceed. Procedure is lumbar epidural blood patch injection under local anesthetic using sterile prep and drape at the L4-5 level using C-arm fluoroscopic guidance in both AP and lateral views, 20 cc patient is on blood taken under sterile technique from left antecubital vein sterilely transferred to epidural space, using 2 mL contrast in the epidural space and confirmed epidural spread, without washout or uptake.- condition at discharge is stable patient tolerated procedure well had no complications. MACO MOFFETT MD Dec 18, 2021 16:03
== END | disposition home or self-care (01) ==
LOC: PNCL 15:22
PROVIDERS: ATTEND Anesthesiology
DX: G97.1 Other reaction to spinal and lumbar puncture (principal); M51.16 Intervertebral disc disorders with radiculopathy, lumbar region; M47.26 Other spondylosis with radiculopathy, lumbar region; G47.30 Sleep apnea, unspecified; M19.90 Unspecified osteoarthritis, unspecified site; E03.9 Hypothyroidism, unspecified; E11.9 Type 2 diabetes mellitus without complications; F41.9 Anxiety disorder, unspecified; Z90.710 Acquired absence of both cervix and uterus; Z98.890 Other specified postprocedural states; Z79.899 Other long term (current) drug therapy; Z88.8 Allergy status to other drugs, medicaments and biological substances; Z72.89 Other problems related to lifestyle
CPT/HCPCS: 62273; 77003; Q9965

== ENCOUNTER → 2022-01-15 | Outpatient (CLI) | payer OTHER ==
[~2022-01-15] MED LIST changes: -IOHEXOL 180 MG/ML 10 ML VIAL. ONE
--- NOTE | 2022-01-15 08:50 | PDOC ---
Progress Note - Pain Clinic Date of Service: DOS: DATE: 01/15/22 TIME: 08:46 Diagnosis: Dx: Lumbar radiculopathy with lumbar degenerative disc disease and lumbar and lumbosacral spondylosis History or Present Illness: HPI: 56-year-old female returns for follow-up status post bilateral lumbar facet injection as well as lumbar epidural steroid injections with significant immediate improvement but no long-lasting improvement patient reports still significant pain low back specially in the left lower extremity posterior gluteu s posterior thigh posterior calf to the ankle and foot with some weakness developing in the left leg as well patient is recently seen a neurosurgeon with recommendations for nonsurgical treatment. We discussed a spinal cord stimulator in the past and patient was given some information regarding it and would like to discussed this in greater detail. Patient reports pain still in t he low back left lower extremity as it was previously sharp and shooting in quality with tingling stabbing pain in the low back and left leg traveling radiating constant and severe worse with walking standing change positions disturbing sleep multiple times throughout the night patient reports is affecting her mood significantly she feels much more irritable and depressed with the pain. Patient is very frustrated that the pain continues to return and there is no surgical alternative at this time. Patient reports no bowel or bladder incontinence but significant weakness with left lower extremity activity and relates an incident last week where she caught herself with left leg on the stairs and almost fell further. Physical Exam: VS: Blood pressure is 140/89 pulse 81 respirations 16 temperature 98.2 F height is 5 foot 9 inches weight is 234 pounds. PE: PHYSICAL EXAMINATION: GENERAL: The patient is awake, alert, oriented, appropriate, very pleasant in d emeanor HEENT: Shows normocephalic, atraumatic. Extraocular movements are intact and symmetrical. Oral cavity: Mucous membranes moist and pink. Dentition is intact. NECK: Shows anterior throat supple without palpable lymphadenopathy noted. Swallow reflex symmetrical. CHEST: Shows normal on inspection. Breath sounds are clear bilaterally. HEART: Shows S1, S2 clear. No murmurs auscultated. ABDOMEN: Soft, nontender, nondistended. No palpable organomegaly is noted. BACK: Shows spine grossly in the midline. Normal-appearing cervical lordotic curvature. There is moderately increased thoracic kyphosis, some flattening of the lumbar lordotic curvature. Lumbar paraspinous muscles show symmetrical on inspection, on palpation shows some moderate tenderness diffusely throughout the upper, middle and lower distribution of the paraspinous muscles, but without specific trigger points, without radiation of pain. The patient has good rotational motion of the lumbar spine, both laterally as well as extension and flexion with moderate discomfort mostly with extension but without radiation. No tenderness over the spinous processes, sacrum or sacroiliac regions. EXTREMITIES: Lower extremities show deep tendon reflexes 2+ in the patellar and tendo calcaneus tendons. Motor exam is 5 on a scale of 5 with right dorsiflexion, extension, quadriceps and hamstring flexion and 4/5 on the left. Peripheral pulses are 1+ posterior tibial. No peripheral edema is noted bilaterally. Lower extremities are warm and dry to touch, equal in color and appearance. SKIN: Shows warm and dry, good turgor. No edema. No sores, rashes or bruising throughout. Procedure: Procedure: Options discussed with patient. Patient's old chart was reviewed as her current medication regimen updated current review of systems updated today as well. We discussed spinal cord stimulation and patient was given information regarding the product. Patient would like to move forward we will have psychiatric evaluation performed first and require preauthorization with patient's insurance provider for spinal cord stimulator temporary leads placement for trial. Medication Injected: Med Injected: None Condition at Discharge: Condition at Discharge: Condition at discharge is stable. MACO MOFFETT MD Jan 15, 2022 08:50
== END | disposition home or self-care (01) ==
LOC: PNCL 08:17
PROVIDERS: ATTEND Anesthesiology
DX: M51.16 Intervertebral disc disorders with radiculopathy, lumbar region (principal); M47.27 Other spondylosis with radiculopathy, lumbosacral region; G47.30 Sleep apnea, unspecified; M19.90 Unspecified osteoarthritis, unspecified site; E11.9 Type 2 diabetes mellitus without complications; E03.9 Hypothyroidism, unspecified; F41.9 Anxiety disorder, unspecified; Z72.89 Other problems related to lifestyle; Z79.899 Other long term (current) drug therapy; Z98.890 Other specified postprocedural states; Z88.8 Allergy status to other drugs, medicaments and biological substances
CPT/HCPCS: 99212; G0463

== ENCOUNTER → 2022-02-08 | Outpatient (CLI) | payer OTHER ==
[~2022-02-08] MED LIST changes: +ANAS1TAB47 PO; +TRAM50TA PO
--- NOTE | 2022-02-08 14:41 | RAD ---
BILATERAL DIAGNOSTIC 3-D MAMMOGRAPHY AND LEFT BREAST ULTRASOUND History: Personal history of left breast cancer post left breast conservation therapy. Ultrasound fol low-up of left breast seroma. Comparison: Bilateral mammogram April 27, 2021. Left breast ultrasound November 23, 2021. Technique: Routine MLO and CC tomosynthesis (3D) digital views performed. Images reviewed by the radi ologist at dedicated workstation. Findings: Breast Tissue Density B : There are scattered areas of fibroglandular density. Glandular nodularity of the right breast is stable. Biopsy clip upper outer right breast, stable. The re are post therapy changes of the upper outer posterior left breast. There is a well-circumscribed a nd obscured mass at the lumpectomy site suggestive of a seroma. There is slight skin thickening. There are no dominant masses, suspicious microcalcifications or unexplained architectural distortion. Real-time ultrasound imaging of the left breast is performed. Fluid collection at the 2:30 position 12 cm from the nipple measures up to 6.5 x 2.3 cm, previously 6 .2 x 1.5 cm. The fluid collection is well-circumscribed and has ovoid shape. Color Doppler interrogat ion is negative. The other much smaller fluid collection in the axilla at the area of scar has resolv ed. IMPRESSION: 1. There are post therapy changes of the upper outer posterior left breast. 2. Postoperative seroma at the 2:30 position of the left breast is mildly larger. The second much sm aller seroma in the axilla has resolved. 3. Recommend diagnostic left mammogram and breast ultrasound follow-up in 6 months. 4. Right mammogram is stable. BI-RADS category 3: Probably benign. The images were reviewed with computer-aided detection. Patient information is entered into the reminder system with a target due date for the next screening mammogram. Mammography is the most sensitive method for finding small breast cancers, but it does not detect the m all and is not a substitute for careful clinical examination. A negative mammogram does not negate a clinically suspicious finding and should not result in delay in biopsying a clinically suspicious a bnormality. "Our facility is accredited by the [employer] Mammography Program." Electronically signed by: Jamari Bran MD (02/08/2022 2:39 PM) [facility]
== END ==
LOC: US 14:01
PROVIDERS: ATTEND Internal Medicine Hematology & Oncology
DX: C50.112 Malignant neoplasm of central portion of left female breast (principal); R23.4 Changes in skin texture
CPT/HCPCS: 76641; 77066; G0279; 77062

== ENCOUNTER → 2022-02-12 | Outpatient (CLI) | payer OTHER ==
[~2022-02-12] MED LIST changes: -ANAS1TAB47 PO; +LIDOCAINE 1% PF 2 ML VIAL. ONE; -TRAM50TA PO
--- NOTE | 2022-02-12 16:42 | PDOC ---
Progress Note - Pain Clinic Date of Service: DOS: DATE: 02/12/22 TIME: 16:35 Diagnosis: Dx: Lumbar radiculopathy with lumbar degenerative disc disease and lumbar spondylosis History or Present Illness: HPI: 56-year-old female returns for follow-up status post lumbar epidural steroid injection translaminar transforaminal injections and facet injections also neurosurgical evaluation recently and lumbar myelogram with surgical recommendations currently. Patient was preauthorize for spinal cord stimulator and would like to proceed with the temporary leads placement today. Patient reports still significant pain in the low back and into the left lower extremity as it was previously posterior gluteus posterior lateral thigh lateral anterior thigh anteromedial thigh medial calf and posterior calf described as sharp and dull in the back radiating shooting the leg tingling burning can be cramping stabbing can be constant severe at times as well patient reports is a 9 to a 10 on a scale of 10 at all times average worst and least over the past week and is a 9-10 today. Patient reports is worse with standing walking also sitting or laying down, and disturbs her sleep significantly, awaken her from sleep several times overnight. Patient reports no loss of motor function but significant fatigability of the left lower extremity. Physical Exam: VS: Blood pressure is 146/85 pulse 90 respirations 18 temperature is 98.7 F height is 5 inches weight is 236 pounds. PE: PHYSICAL EXAMINATION: GENERAL: The patient is awake, alert, oriented, appropriate, very pleasant in demeanor HEENT: Shows normocephalic, atraumatic. Extraocular movements are intact and symmetrical. Oral cavity: Mucous membranes moist and pink. Dentition is intact. NECK: Shows anterior throat supple without palpable lymphadenopathy noted. Swallow reflex symmetrical. CHEST: Shows normal on inspection. Breath sounds are clear bilaterally. HEART: Shows S1, S2 clear. No murmurs auscultated. ABDOMEN: Soft, nontender, nondistended. No palpable organomegaly is noted. BACK: Shows spine grossly in the midline. Normal-appearing cervical lordotic curvature. There is moderately increased thoracic kyphosis, some minor flattening of the lumbar lordotic curvature. Lumbar paraspinous muscles show symmetrical on inspection, on palpation shows some moderate tenderness diffusely throughout the upper, middle and lower distribution of the paraspinous muscles bilaterally and also into the lower thoracic paraspinous musculature, firm and tender, but without specific trigger points, without radiation of pain. The patient has good rotational motion of the lumbar spine, both laterally as well as extension and flexion without significant difficulty. No tenderness over the spinous processes, sacrum or sacroiliac regions. EXTREMITIES: Lower extremities show deep tendon reflexes 2+ in the patellar and tendo calcaneus tendons. Motor exam is 5 on a scale of 5 with right dorsiflexion, extension, quadriceps and hamstring flexion and 4/5 on the left. Peripheral pulses are 1 posterior tibial. No peripheral edema is noted bilaterally. Lower extremities are warm and dry to touch, equal in color and appearance. SKIN: Shows warm and dry, good turgor. No edema. No sores, rashes or bruising throughout. Procedure: Procedure: Options were discussed with the patient. Patient's old chart was reviewed as her current medication regimen updated current review of systems updated today as well. We will proceed with a spinal cord stimulator temporary leads placement x2 with fluoroscopic guidance. Risks were discussed including but not limited to: Bleeding, infection, possibility of epidural hematoma and subsequent neurological compromise, dural puncture, headaches, spinal cord and/or nerve damage, and poor results regarding pain control. Patient understands and wished to proceed. Medication Injected: Med Injected: Under sterile prep and drape patient in prone position using C-arm fluoroscopic guidance patient's lumbar spine was identified and vertebral levels were counted did put external marker on the T8 level. This time the lumbar spine was revisualized and using 1% lidocaine, the area over the L4-5 level was anesthetized and then using a 14-gauge Fareyetead needle with stylette was entered to the epidural space at the L2-3 level using a paramedian approach to the right with preservative-free normal saline [id number] technique aspiration was noted to be negative and using direct fluoroscopy visualization spinal cord stimulator lead was then advanced without significant resistance in the midline and confirmed posterior with both AP and lateral views, and advanced to the superior endplate of the T8 vertebral level superimposed with the superior spinal cord stimulator electrode lead. Fluoroscopy was used in a lateral view to verify posterior placement in the epidural space at this point as well. At this time a second lead was then introduced in similar fashion at the L4-5 level and inserted and in the epidural space at the L2-3 level once again with preservative-free normal saline [id number]-[id number] technique. Aspiration was again noted to be negative and using direct visualization with fluoroscopy second lumbar spinal cord stimulator lead was advanced without significant resistance in the midline with the superior electrode superimposed over the superior endplate of the T9 vertebral body. Lateral visualization was again confirmed with placement of the stimulator in the posterior epidural space. At this time the needles and stylette were removed with intermittent fluoroscopic visualization maintaining that the leads had not moved during this process and this was confirmed. This time 1% lidocaine was used to anesthetize the skin next to the insertion sites of the stimulator wires and using a 2-0 silk were then sutured in place. Mastisol and Tegaderm was then applied as well as reinforcing tape and gauze. Patient was transferred to the recovery area under his own power walking without difficulty and had no immediate complications from the procedure. Stimulation was then carried out with [facility] representatives. Patient will return to the clinic in approximately 1 week for removal of the temporary leads and reassessment of the patient's pain level. Condition at Discharge: Condition at Discharge: Condition at discharge stable, patient Reina the procedure well and had no complications. MACO MOFFETT MD Feb 12, 2022 16:42
== END | disposition home or self-care (01) ==
LOC: PNCL 13:04
PROVIDERS: ATTEND Anesthesiology
DX: M51.16 Intervertebral disc disorders with radiculopathy, lumbar region (principal); M47.26 Other spondylosis with radiculopathy, lumbar region; G47.30 Sleep apnea, unspecified; E03.9 Hypothyroidism, unspecified; M19.90 Unspecified osteoarthritis, unspecified site; F41.9 Anxiety disorder, unspecified; Z90.710 Acquired absence of both cervix and uterus; Z98.890 Other specified postprocedural states; Z79.899 Other long term (current) drug therapy; Z72.89 Other problems related to lifestyle; Z88.8 Allergy status to other drugs, medicaments and biological substances
CPT/HCPCS: 63650; C1897; J3490

== ENCOUNTER → 2022-02-16 | Outpatient (CLI) | payer OTHER ==
[~2022-02-16] MED LIST changes: -LIDOCAINE 1% PF 2 ML VIAL. ONE
[2022-02-16 09:34] LABS: BASO # 0.1 x10^3/uL (0.0-0.2); BASO % 1 % (0-3); EOS # 0.2 x10^3/uL (0.0-0.7); EOS % 3 % (0-3); HEMATOCRIT 41.6 % (36.0-47.0); HEMOGLOBIN 13.5 g/dL (12.0-15.5); LYMPH # 1.3 x10^3/uL (1.0-4.8); LYMPH % 26 % (24-48); MEAN CORPUSCULAR HEMOGLOBIN 28 pg (25-35); MEAN CORPUSCULAR HGB CONC 32 g/dL (31-37); MEAN CORPUSCULAR VOLUME 88 fL (79-100); MONO # 0.5 x10^3/uL (0.0-1.1); MONO % 9 % (0-9); NEUT # 3.1 x10^3/uL (1.8-7.7); NEUT % 61 % (31-73); PLATELET COUNT 275 x10^3/uL (140-400); RED BLOOD COUNT 4.74 x10^6/uL (3.50-5.40); RED CELL DISTRIBUTION WIDTH 14.2 % (11.5-14.5); WHITE BLOOD COUNT 5.1 x10^3/uL (4.0-11.0)
[2022-02-16 09:47] LABS: CALCIUM 9.3 mg/dL (8.5-10.1); CREATININE 0.6 mg/dL (0.6-1.0); GFR 102.7; POTASSIUM 3.7 mmol/L (3.5-5.1)
[2022-02-16 09:53] LABS: ALBUMIN 3.7 g/dL (3.4-5.0); ALBUMIN/GLOBULIN RATIO 0.9 (1.0-1.7); TOTAL BILIRUBIN 0.2 mg/dL (0.2-1.0); TOTAL PROTEIN 7.6 g/dL (6.4-8.2)
[2022-02-16 10:01] LABS: FREE T4 1.13 ng/dL (0.76-1.46); THYROID STIM HORMONE (TSH) 1.408 uIU/mL (0.358-3.74)
[2022-02-17 00:12] LABS: HEMOGLOBIN A1C 5.7 % (4.8-5.6)
== END ==
LOC: ONCLAB 08:55
PROVIDERS: ATTEND Internal Medicine Hematology & Oncology
DX: C50.112 Malignant neoplasm of central portion of left female breast (principal); E03.2 Hypothyroidism due to medicaments and other exogenous substances; R73.02 Impaired glucose tolerance (oral)
CPT/HCPCS: 36415; 80053; 83036; 83615; 84439; 84443; 85025

== ENCOUNTER → 2022-02-19 | Outpatient (CLI) | payer OTHER ==
--- NOTE | 2022-02-19 11:14 | PDOC ---
Progress Note - Pain Clinic Date of Service: DOS: DATE: 02/19/22 TIME: 11:11 Diagnosis: Dx: Lumbar radiculopathy with lumbar degenerative disease and lumbar spondylosis History or Present Illness: HPI: 56-year-old female returns for follow-up status post spinal cord stimulator temporary leads placement 1 week ago. Patient reports doing very well near 100% improvement with the pain in her low back and left lower extremity she is very pleased with the improvement that she received patient reports an increase in activity with greater ease and comfort walking greater distances doing household activities working greater durations and try with greater ease and comfort sleeping better at night patient reports does not awaken her from sleep currently she is very pleased with her progress and is quite excited that the pain is reduced to the significant extent that it is reduced patient reports is a 1 to a 2 on a scale of 10 is worst least and average is a 1 today. Patient reports is tingling and aching in the leg at times but significantly reduced to near 100% as noted. Patient reports no bowel or bladder incontinence or other deficits. Physical Exam: VS: Blood pressure is 157/93 pulse 83 respirations 18 temperature 99.0 F height 5 feet 9 inches weight 236 pounds. PE: PHYSICAL EXAMINATION: GENERAL: The patient is awake, alert, oriented, appropriate, very pleasant in demeanor HEENT: Shows normocephalic, atraumatic. Extraocular movements are intact and symmetrical. NECK: Shows anterior throat supple without palpable lymphadenopathy noted. Swallow reflex symmetrical. CHEST: Shows normal on inspection. Breath sounds are clear bilaterally. HEART: Shows S1, S2 clear. No murmurs auscultated. ABDOMEN: Soft, nontender, nondistended. No palpable organomegaly is noted. BACK: Shows spine grossly in the midline. Normal-appearing cervical lordotic curvature. There is slightly increased thoracic kyphosis, some flattening of the lumbar lordotic curvature. Tegaderms are intact with some small amount of dried blood under the dressing. No erythema no exudate. Lumbar paraspinous muscles show symmetrical on inspection, on palpation shows some moderate tenderness diffusely throughout the upper, middle and lower distribution of the paraspinous muscles without specific trigger points, without radiation of pain. The patient has good rotational motion of the lumbar spine, both laterally as well as extension and flexion without significant difficulty. No tenderness over the spinous processes, sacrum or sacroiliac regions. EXTREMITIES: Lower extremities show deep tendon reflexes 2+ in the patellar and tendo calcaneus tendons. Motor exam is 5 on a scale of 5 with right dorsiflexion, extension, quadriceps and hamstring flexion and 4/5 on the left. Peripheral pulses are 1+ posterior tibial. No peripheral edema is noted bilaterally. Lower extremities are warm and dry to touch, equal in color and appearance. SKIN: Shows warm and dry, good turgor. No edema. No sores, rashes or bruising throughout. Procedure: Procedure: Options were discussed with the patient. Patient's chart was reviewed her current medication regimen updated current review of systems updated today as well. We took down patient's dressing under sterile prep and drape and sutures were cut sterilely leads were removed x2 with tips intact, sites clean and dry no erythema no drainage no significant tenderness. We will make arrangements for permanent spinal cord stimulator system placements. Medication Injected: Med Injected: None Condition at Discharge: Condition at Discharge: Condition at discharge is stable. MACO MOFFETT MD Feb 19, 2022 11:14
== END | disposition home or self-care (01) ==
LOC: PNCL 10:28
PROVIDERS: ATTEND Anesthesiology
DX: M51.16 Intervertebral disc disorders with radiculopathy, lumbar region (principal); M47.26 Other spondylosis with radiculopathy, lumbar region; G47.30 Sleep apnea, unspecified; M19.90 Unspecified osteoarthritis, unspecified site; E11.9 Type 2 diabetes mellitus without complications; E03.9 Hypothyroidism, unspecified; F41.9 Anxiety disorder, unspecified; Z90.710 Acquired absence of both cervix and uterus; Z98.890 Other specified postprocedural states; Z72.89 Other problems related to lifestyle; Z88.8 Allergy status to other drugs, medicaments and biological substances
CPT/HCPCS: 99212; G0463

== ENCOUNTER 2022-03-09 12:16 | Day surgery (SDC) | payer OTHER ==
[~2022-03-09] VITALS: Ht 175.3 cm; Wt 106.0 kg
[~2022-03-09 12:16] MED LIST changes: +ANAS1TAB47 PO; +HYDROmorphone 2 MG/ML INJ. IVP PRN; +IOHEXOL 300 MG/ML 50 ML VIAL. ONE; +IV RINGERS,LACTATED 1000ML 1,000 ML IV SCH; +LIDOCAINE 1%/EPI 1:100,000 20 ML VIAL. ONE; +MORPHINE SULFATE 2 MG/ML INJ. IVP PRN; +PROCHLORPERAZINE 10 MG/2 ML VIAL. IVP PRN; +ceFAZolin SODIUM IV Push 1 GM VIAL. IVP PRN; +fentaNYL PF VIAL 100 MCG/2 ML VIAL IVP PRN
[2022-03-09 12:36] VITALS: BP 139/89
[2022-03-09] MEDS ORDERED: DEXMEDETOMIDINE 200 MCG/2 ML VIAL. ONE (13:32)
[2022-03-09] MEDS ORDERED: fentaNYL PF VIAL 100 MCG/2 ML VIAL ONE ×2 (13:48→16:20)
[2022-03-09] MEDS ORDERED: ROCURONIUM 50 MG/5 ML VIAL. ONE (13:48)
[2022-03-09] MEDS ORDERED: PROPOFOL 50 ML IV ONE (13:58)
[2022-03-09] MEDS ORDERED: DEXAMETHASONE SOD PHOS 4 MG/ML VIAL ONE (14:00)
[2022-03-09] MEDS ORDERED: ceFAZolin SODIUM IV Push 1 GM VIAL. IVP ONE (14:14)
[2022-03-09] MEDS ORDERED: ONDANSETRON PF 4 MG/2 ML VIAL. ONE (14:21)
[2022-03-09] MEDS ORDERED: PHENYLEPHRINE in 0.9% NACL PF 1 MG/10 ML SYRINGE. IV ONE (14:39)
[2022-03-09] MEDS ORDERED: ePHEDrine PF IN SALINE 50 MG/10 ML SYRINGE. IV ONE (14:39)
[2022-03-09] MEDS ORDERED: SUGAMMADEX SODIUM 200 MG/2 ML VIAL. IVP ONE (15:00)
[2022-03-09] MEDS ORDERED: TRAM50TA PO (16:12)
--- NOTE | 2022-03-09 16:16 | DISCH ---
DISCHARGE INSTRUCTIONS Condition on Discharge Condition on Discharge: Stable Activity After Discharge Activity Instructions for Disc: Activity as tolerated Bathing Instructions: Shower-keep dressing dry Driving Instructions after Dis: Do not drive today Diet after Discharge Diet after Discharge: Regular Wound Incision Care Wound/Incision Care: Other, see below Contacting the DR. after DC Call your doctor for: Concerns you may have MACO MOFFETT MD Mar 09, 2022 16:16
[2022-03-09] MEDS: fentaNYL PF VIAL 100 MCG/2 ML VIAL IVP PRN ×2 (16:22→16:39)
[2022-03-09] MEDS ORDERED: traMADol 50 MG TABLET PO ONE (16:30)
--- NOTE | 2022-03-09 16:42 | PDOC4 ---
OPERATIVE NOTE Date: Date: Mar 09, 2022 Pre-Op Diagnosis: Lumbar radiculopathy with lumbar degenerative disc disease and lumbar spinal stenosis Post-Op Diagnosis: Same Procedure Performed: Spinal cord stimulator dual lead implantation with generator implantation Surgeon: Ambrocio Anesthesia Type: general endotracheal Blood Loss: 100cc Specimans Obtained: none Findings: See dictation Complications: None Operative Note: Patient was consented for spinal cord stimulator dual lead placement as well as generator placement. Risk were discussed including but not limited to bleeding infection possibility of migration of the leads, dural punctures and spinal headache, pain at the insertion sites and generator site, poor results regarding pain control. Patient understands wished to proceed. Patient was taken to operating [facility]. number 8, general endotracheal anesthesia was induced and patient was placed in a prone position with all pressure points padded and breath sounds clear bilaterally. Patient was prepped in the usual fashion using sterile prep and sterile drape prep was allowed to dry for 3 minutes before draping. Using C-arm fluoroscopic guidance patient's lumbar spine was identified and vertebral levels were counted did put external marker on the T8 level. This time the lumbar spine was revisualized and using 1% lidocaine, the area over the L3 4 level was anesthetized and then using a 14-gauge Gumroadtead needle with stylette was entered to the epidural space at the L1 -2 level using a paramedian approach to the right with preservative-free normal saline [id number] technique aspiration was noted to be negative and using direct fluoroscopy visualization spinal cord stimulator lead was then advanced without significant resistance in the midline and confirmed posterior with both AP and lateral views, and advanced to the superior endplate of the T8 vertebral level superimposed with the superior spinal cord stimulator electrode lead. Fluoroscopy was used in a lateral view to verify posterior placement in the epidural space at this point as well. At this time a second lead was then introduced in similar fashion at the L 3-4 level and inserted and in the epidural space at the L1-2 level once again with preservative-free normal saline [id number] technique. Aspiration was again noted to be negative and using direct visualization with fluoroscopy second lumbar spinal cord stimulator lead was advanced without significant resistance in the midline with the superior electrode superimposed over the superior endplate of the T9 vertebral body. Lateral visualization was again confirmed with placement of the stimulator in the posterior epidural space. At this time additional 1% lidocaine with 1: 200,000 epinephrine was used to infiltrate area superior to the insertion sites of the superior needle and the inferior needle. Using a 15 blade scalpel the skin was then incised through the anesthetized area and a sagittal direction this was extended into the subcutaneous tissues and cut down to the needles and approximately 4 cm above and 2 cm below. Local hemorrhage was controlled with pressure and electrocautery. At this time a 0 silk suture was placed around the needle and incorporating the periosteum of the left aspect of the vertebral periosteum for each needle. Pop-off needles were removed and under direct fluoroscopic visualization the epidural needles were then removed and stylette removed from the spinal cord stimulator leads with verification of no movement of the spinal stimulator leads at their most superior aspect of the T8 and T9 levels. The previously placed 0 silk sutures were then used to wrap the spinal cord stimulator leads x3 above and 3 below and then suture was tied for each lead. Again visualization was used to confirm no movement of the leads during securing the wires with the suture. At this time the wound was irrigated x3 with bacitracin irrigation and reinspected with no local hemorrhage noted. Next, area to the left of the needle insertion site was identified for a pocket placement for the spinal cord stimulator generator. Using 1% lidocaine with 1: 200,000 epinephrine again in a sagittal direction was infiltrated approximately 8 cm from the original incision to the left aspect of th the low back. Using 15 blade scalpel was incised through the anesthetized area incision was carried down through the fascia and into the adipose tissue and a pocket was made to the lateral aspect of the incision using both sharp and blunt dissection with local hemorrhage controlled with pressure and electrocautery. Pocket was checked with stimulator generator sizer included in the kit and was found to accommodate the sizer adequately. This time the pocket was then irrigated with bacitracin irrigation x3 and reinspected with no local hemorrhage identified. At this time tunneling device was used to connect to the incision site for the stimulator leads to the newly created pocket. Wires were transferred through the tunneling device and tunneling device was removed with the wires now in the pockets. At this time the spinal cord stimulator generator itself was attached to the medical stimulator leads and impedances were checked showing good impedance on all leads. The leads were then locked into place with screwdriver lock mechanism. Stimulator generator was then placed in the pocket with the leads coiled away from the skin behind the generator. Wounds were then closed using interrupted 2-0 Vicryl and skin closed on each wound with running suture of 3-0 Vicryl. Wounds were then dressed with Steri-Strips and Tegaderm dressings. Patient tolerated the procedure well had no immediate complications was transferred to the recovery room in stable and awake condition. MACO MOFFETT MD Mar 09, 2022 16:42
[2022-03-09 16:43] VITALS: BP 137/88
== END 2022-03-09 16:58 | disposition home or self-care (01) ==
LOC: SURG 12:16
PROVIDERS: ATTEND Anesthesiology
DX: M51.16 Intervertebral disc disorders with radiculopathy, lumbar region (principal); M48.061 Spinal stenosis, lumbar region without neurogenic claudication; G47.30 Sleep apnea, unspecified; E11.9 Type 2 diabetes mellitus without complications; M19.90 Unspecified osteoarthritis, unspecified site; E03.9 Hypothyroidism, unspecified; F41.9 Anxiety disorder, unspecified; Z85.3 Personal history of malignant neoplasm of breast; Z90.710 Acquired absence of both cervix and uterus; Z98.890 Other specified postprocedural states; Z79.899 Other long term (current) drug therapy; Z72.89 Other problems related to lifestyle; Z91.040 Latex allergy status; Z88.8 Allergy status to other drugs, medicaments and biological substances
CPT/HCPCS: 63685; A4364; A4930; A6254; A6258; C1778; C1822; J0690; J1100; J2370; J2405; J2704; J3010; J3490; 76000; A4322; A4452; A4657; C1787; Q9967

== ENCOUNTER → 2022-03-13 | Outpatient (CLI) | payer OTHER ==
[2022-03-09 16:43] VITALS: BP 137/88
[~2022-03-13] MED LIST changes: -HYDROmorphone 2 MG/ML INJ. IVP PRN; -IOHEXOL 300 MG/ML 50 ML VIAL. ONE; -IV RINGERS,LACTATED 1000ML 1,000 ML IV SCH; -LIDOCAINE 1%/EPI 1:100,000 20 ML VIAL. ONE; -MORPHINE SULFATE 2 MG/ML INJ. IVP PRN; -PROCHLORPERAZINE 10 MG/2 ML VIAL. IVP PRN; +TRAM50TA PO; -ceFAZolin SODIUM IV Push 1 GM VIAL. IVP PRN; -fentaNYL PF VIAL 100 MCG/2 ML VIAL IVP PRN
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
== END | disposition home or self-care (01) ==
LOC: PNCL 13:52
PROVIDERS: ATTEND Anesthesiology
DX: M51.16 Intervertebral disc disorders with radiculopathy, lumbar region (principal); M47.26 Other spondylosis with radiculopathy, lumbar region; G47.30 Sleep apnea, unspecified; E11.9 Type 2 diabetes mellitus without complications; E03.9 Hypothyroidism, unspecified; F41.9 Anxiety disorder, unspecified; M19.90 Unspecified osteoarthritis, unspecified site; Z79.899 Other long term (current) drug therapy; Z98.890 Other specified postprocedural states; Z85.3 Personal history of malignant neoplasm of breast; Z91.040 Latex allergy status; Z88.8 Allergy status to other drugs, medicaments and biological substances
CPT/HCPCS: 99212; G0463

== ENCOUNTER → 2022-03-16 | Outpatient (CLI) | payer OTHER ==
[2022-03-09 16:43] VITALS: BP 137/88
--- NOTE | 2022-03-16 10:24 | PDOC ---
Progress Note - Pain Clinic Date of Service: DOS: DATE: 03/16/22 TIME: 10:21 Diagnosis: Dx: Lumbar radiculopathy with lumbar degenerative disease and lumbar spondylosis History or Present Illness: HPI: 56-year-old female returns for follow-up status post spinal cord stimulator generator and dual lead system implantation 1 week ago. Patient was having some difficulty with her bandage earlier in the week and we redressed this and I reassessed and she is returned today on the scheduled follow-up reporting excellent coverage with the stimulation at 99% improvement in the pain in the low back and legs but still has some pain in the insertion site and operative site as well. Patient reports it feels like a ripping and freezing sensation when she is moving around in the low back static pain hurts getting up and down from laying down to standing to sitting and vice versa and very tender at the incision site. Patient reports otherwise doing very well to stimulation reports no fevers no further drainage of the wound as well. Physical Exam: VS: Blood pressure is 148/77 pulse is 81 respirations 18 temperature 99.0 F weight is 233 pounds. PE: PHYSICAL EXAMINATION: GENERAL: The patient is awake, alert, oriented, appropriate, very pleasant in demeanor HEENT: Shows normocephalic, atraumatic. Extraocular movements are intact and symmetrical. Oral cavity: Mucous membranes moist and pink. Dentition is intact. NECK: Shows anterior throat supple without palpable lymphadenopathy noted. Swallow reflex symmetrical. CHEST: Shows normal on inspection. Breath sounds are clear bilaterally. HEART: Shows S1, S2 clear. No murmurs auscultated. ABDOMEN: Soft, nontender, nondistended. No palpable organomegaly is noted. BACK: Shows spine grossly in the midline. Normal-appearing cervical lordotic curvature. There is slightly increased thoracic kyphosis, some minor flattening of the lumbar lordotic curvature. Surgical site shows some bruising but intact with Steri-Strips and Tegaderm Tegaderm was taken down today under sterile prep and drape and wound assessed with good adhesion of the Steri-Strips. Tegaderm was replaced sterilely over the Tegaderms without gauze on redress of the wound today. Stimulator easily palpable somewhat tender at both incision sites and lateral to the stimulator as well with some bruising noted also. EXTREMITIES: Lower extremities show deep tendon reflexes 2 in the patellar and tendo calcaneus tendons. Motor exam is 5 on a scale of 5 with right dorsiflexion, extension, quadriceps and hamstring flexion and 4/5 on the left. Peripheral pulses are 1+ posterior tibial. No peripheral edema is noted bilaterally. Lower extremities are warm and dry to touch, equal in color and appearance. SKIN: Shows warm and dry, good turgor. No edema. No sores, rashes or bruising throughout. Procedure: Procedure: Options discussed with the patient. Patient's old chart was reviewed as her current medication regimen updated current review of systems updated today as well. We will redress patient's wound as noted under sterile technique patient will follow up in approximately 1 week or as necessary sooner. Medication Injected: Med Injected: None Condition at Discharge: Condition at Discharge: Condition at discharge is stable. MACO MOFFETT MD Mar 16, 2022 10:24
== END | disposition home or self-care (01) ==
LOC: PNCL 09:37
PROVIDERS: ATTEND Anesthesiology
DX: M47.26 Other spondylosis with radiculopathy, lumbar region (principal); M51.16 Intervertebral disc disorders with radiculopathy, lumbar region; G47.30 Sleep apnea, unspecified; E03.9 Hypothyroidism, unspecified; M19.90 Unspecified osteoarthritis, unspecified site; E11.9 Type 2 diabetes mellitus without complications; F41.9 Anxiety disorder, unspecified; Z85.3 Personal history of malignant neoplasm of breast; Z90.710 Acquired absence of both cervix and uterus; Z98.890 Other specified postprocedural states; Z79.899 Other long term (current) drug therapy; Z88.8 Allergy status to other drugs, medicaments and biological substances
CPT/HCPCS: G0463

== ENCOUNTER → 2022-04-16 | Outpatient (CLI) | payer OTHER ==
[2022-04-16 08:32] LABS: BASO % 1 % (0-3); EOS # 0.1 x10^3/uL (0.0-0.7); EOS % 2 % (0-3); HEMATOCRIT 40.5 % (36.0-47.0); HEMOGLOBIN 13.6 g/dL (12.0-15.5); LYMPH % 22 % (24-48); MEAN CORPUSCULAR HEMOGLOBIN 29 pg (25-35); MEAN CORPUSCULAR HGB CONC 34 g/dL (31-37); MEAN CORPUSCULAR VOLUME 86 fL (79-100); MONO # 0.3 x10^3/uL (0.0-1.1); MONO % 6 % (0-9); NEUT # 3.3 x10^3/uL (1.8-7.7); NEUT % 70 % (31-73); PLATELET COUNT 248 x10^3/uL (140-400); RED BLOOD COUNT 4.69 x10^6/uL (3.50-5.40); RED CELL DISTRIBUTION WIDTH 14.7 % (11.5-14.5); WHITE BLOOD COUNT 4.7 x10^3/uL (4.0-11.0)
[2022-04-16 08:43] LABS: ALBUMIN 3.8 g/dL (3.4-5.0); CALCIUM 9.3 mg/dL (8.5-10.1); CREATININE 0.7 mg/dL (0.6-1.0); GFR 85.9; POTASSIUM 3.9 mmol/L (3.5-5.1); TOTAL BILIRUBIN 0.3 mg/dL (0.2-1.0); TOTAL PROTEIN 7.6 g/dL (6.4-8.2)
[2022-04-16 08:47] LABS: CHOLESTEROL/HDL RATIO 3.1
[2022-04-16 08:50] LABS: FREE T4 1.21 ng/dL (0.76-1.46); THYROID STIM HORMONE (TSH) 1.233 uIU/mL (0.358-3.74)
== END ==
LOC: LAB 06:11
PROVIDERS: ATTEND Family Medicine
DX: C50.912 Malignant neoplasm of unspecified site of left female breast (principal); E03.9 Hypothyroidism, unspecified; E11.9 Type 2 diabetes mellitus without complications; E55.9 Vitamin D deficiency, unspecified
CPT/HCPCS: 80053; 80061; 82306; 84439; 84443; 85025